=== PATIENT | female | born 1970 | race Caucasian/White ===

== ENCOUNTER 2017-12-03 19:54 | Observation (INO) ==
[2017-12-03 20:35] LABS: Basophils # 0.1 K/mcL (0.0-0.2); Basophils % 0.9 %; Eosinophils # 0.2 K/mcL (0.0-0.6); Eosinophils % 2.6 %; Hematocrit 37.7 % (35.3-44.9); Hemoglobin 12.2 g/dL (11.5-15.4); Immature Granulocytes % 0.8 % (0-4); Lymphocytes # 3.7 K/mcL (0.6-4.6); Lymphocytes % 39.9 %; Mean Corpuscular HGB Conc 32.4 g/dL (31.6-35.5); Mean Corpuscular Hemoglobin 26.1 pg (28.0-33.3); Mean Corpuscular Volume 80.7 fL (83.0-100.0); Mean Platelet Volume 9.3 fL (9.4-12.4); Monocytes # 0.4 K/mcL (0.0-1.3); Monocytes % 4.6 %; Neutrophils # 4.7 K/mcL (1.6-8.9); Platelet Count 447 K/mcL (140-400); Red Blood Count 4.67 M/mcL (3.82-4.97); Red Cell Distribution Width 12.6 % (11.5-14.5); Segmented Neutrophils % 51.2 %
[2017-12-03 20:49] LABS: BUN/Creatinine Ratio 19 (6-26); Blood Urea Nitrogen 20 mg/dL (6-20); Calcium 9.5 mg/dL (8.6-10.3); Carbon Dioxide 24 mEq/L (23-29); Chloride 103 mEq/L (98-107); Glucose 95 mg/dL (70-105); Osmolality,Calculated 286 (280-300); Potassium 3.6 mEq/L (3.5-5.1); Sodium 137 mEq/L (136-145); eGFR For African Americans > 60 (> 60); eGFR For Non-African Americans 54 (> 60)
--- NOTE | 2017-12-03 21:20 | Emergency Department Note ---
Disposition Clinical Impression: Chest pain Qualifiers: Chest pain type: unspecified Qualified Code(s): R07.9 - Chest pain, unspecified Disposition: Admitted As Inpatient Condition: Good Referrals: Antonette Parsons [Primary Care Provider] - Forms: ED Satisfaction Letter Time of Disposition: 21:20 Chest Pain HPI - General Chief Complaint: ED Shortness of Breath/Dyspnea Stated Complaint: Shortness of breath, chest tightness Time Seen by Provider: 12/03/17 21:08 Source: patient Mode of arrival: ambulatory Limitations: no limitations Vital Signs Reviewed: Yes Nursing Notes Reviewed: Yes - History of Present Illness HPI Narrative: 47-year-old female who comes in complaining of some intermittent chest pain. Patient was seen at outside facility and was told that she had a troponin that was positive but did not have any stress testing. She did go to [place] and had a troponin that was positive also. She's had intermittent chest pain since. She does have risk factors of hypertension high cholesterol family history. Pt complaint: chest pain Onset (ago): day(s) Duration: intermittent Onset: during rest Pain Location: substernal, left chest Severity: moderate Severity scale (1-10): 2 Quality: tightness, aching, heaviness Pain Radiation: none Improves with: nothing Worsens with: nothing Associated symptoms: Reports: dyspnea Treatments prior to arrival chest pain: none - Related Data Home Medications Medication Instructions Recorded Confirmed FLUoxetine HCl [Prozac] 40 mg PO DAILY 04/06/16 11/28/17 Omeprazole 20 mg PO BID 04/06/16 11/28/17 Cholecalciferol (Vitamin D3) 50,000 unit PO QWEEK 10/28/16 11/28/17 [Vitamin D3] Pantoprazole Sodium [Protonix] 40 mg PO DAILY 10/28/16 11/28/17 Atorvastatin [Lipitor] 10 mg PO HS 06/22/17 11/28/17 Fluticasone Propionate Nasal 1 spr NS BID PRN 06/22/17 11/28/17 [Flonase] Ranitidine HCl [Zantac] 150 mg PO HS 06/22/17 11/28/17 hydrOXYzine pamoate [HydrOXYzine 25 mg PO Q8H PRN 06/22/17 11/28/17 Pamoate] Allergies Allergy/AdvReac Type Severity Reaction Status Date / Time cephalexin Allergy Rash Verified 11/28/17 16:45 meperidine [From Demerol] Allergy Difficulty Verified 11/28/17 16:45 Breathing morphine Allergy Hives Verified 11/28/17 16:45 Penicillins [PCN] Allergy Rash Verified 11/28/17 16:45 All systems ED: reviewed and negative except as stated. Constitutional: Denies: fever, chills, weakness, weight change Eyes: Denies: eye pain, eye discharge, vision change ENT ED: Denies: ear pain, throat pain, dental pain, hearing loss, epistaxis, congestion, dysphagia Cardiovascular: Reports: chest pain. Denies: palpitations, dyspnea on exertion , edema, syncope Respiratory: Reports: dyspnea. Denies: cough, wheezes, hemoptysis, stridor Gastrointestinal: Denies: abdominal pain, nausea, vomiting, diarrhea, constipation, hematemesis, melena, hematochezia Genitourinary: Denies: dysuria, frequency, hematuria, discharge Musculoskeletal: Denies: back pain, neck pain, arthralgia, myalgia Integumentary: Denies: rash, abrasion, lesions Neurological: Denies: headache, weakness, numbness, paresthesias, confusion, abnormal gait, vertigo Psychiatric: Denies: anxiety, depression, suicidal thoughts, homicidal thoughts , auditory hallucinations, visual hallucinations Endocrine: Denies: fatigue Hematological/Lymphatic: Denies: easy bleeding, easy bruising Allergic/Immunologic: Denies: facial swelling, urticaria Chest Pain PMH - Past Medical History Medical history: Reports: GERD, hyperlipidemia, hypertension, other Surgical history: Reports: cholecystectomy, hysterectomy, orthopedic, other, sinus surgery, other Psychiatric history: Reports: anxiety, bipolar, depression, other - Social History Smoking Status: Former smoker Alcohol use: Reports: none Drug use: Reports: none Physical Exam - General Limitations: no limitations General appearance: alert, in no apparent distress - Head Head exam: atraumatic, normocephalic, normal inspection - Eye Eye exam: Present: normal appearance, PERRL, EOMI - ENT ENT exam: normal exam, normal oropharynx, mucous membranes moist - Neck Neck exam: Present: normal inspection, full ROM, trachea midline - Chest Chest inspection: Present: normal inspection, symmetric chest wall rise - Respiratory Respiratory exam: Present: normal lung sounds bilaterally - Cardiovascular Cardiovascular exam: Present: regular rate, normal rhythm, normal heart sounds - Abdominal Exam Abdominal exam: Present: soft, Non-Tender. Absent: tenderness, distention, guarding, rebound, rigidity - Extremities Exam Extremities exam: Present: normal inspection, full ROM. Absent: tenderness, pedal edema - Expanded Lower Extremity Exam Neurovascular/Tendon exam: Absent: motor deficit, sensory deficit, tendon deficit Gait: observed and normal - Back Exam Back exam: Present: normal inspection, full ROM. Absent: tenderness - Neurological Exam Neurological exam: Present: alert, oriented X3 - Psychiatric Psychiatric exam: Present: normal affect, normal mood Course - Reevaluation(s) Reevaluation #1: 47-year-old female who comes in complaining of chest pain and dyspnea she's had for a week or 2. She was actually seen at outside hospital had a positive troponin was discharged the next day with no further evaluation. She went to another hospital and will had a second troponin done that was positive. Troponin today is negative however in light of her to positive troponins and her symptoms were brought admit for rule out. Time: 23:08 - Consultations Consultation #1: Discussed with Dr. Burnett, admit. Time: 23:09 Vital Signs Temperature 97.4 F L 12/03/17 19:55 Pulse Rate 77 12/03/17 19:55 Respiratory Rate 16 12/03/17 19:55 Blood Pressure 145/88 12/03/17 19:55 O2 Sat by Pulse Oximetry 95 12/03/17 19:55 Temperature 97.4 F L 12/03/17 19:55 Pulse Rate 86 12/03/17 21:21 Respiratory Rate 18 12/03/17 21:21 Blood Pressure 140/71 12/03/17 21:21 O2 Sat by Pulse Oximetry 98 12/03/17 21:21 Oxygen Delivery Oxygen Delivery Room Air Chest Pain - Lab Data Lab results reviewed: Yes I reviewed the patient's lab results. Result diagrams: 12/03/17 20:25 12/03/17 20:25 Lab Results 12/03/17 12/03/17 12/03/17 Range/Units 20:25 20:25 20:25 WBC 9.2 (4.3-11.1) K/mcL RBC 4.67 (3.82-4.97) M/mcL Hgb 12.2 (11.5-15.4) g/dL Hct 37.7 (35.3-44.9) % MCV 80.7 L (83.0-100.0) fL MCH 26.1 L (28.0-33.3) pg MCHC 32.4 (31.6-35.5) g/dL RDW 12.6 (11.5-14.5) % Plt Count 447 H (140-400) K/mcL MPV 9.3 L (9.4-12.4) fL Immature Gran % 0.8 (0-4) % Seg Neutrophils % 51.2 % Lymphocytes % 39.9 % Monocytes % 4.6 % Eosinophils % 2.6 % Basophils % 0.9 % Neutrophils # 4.7 (1.6-8.9) K/mcL Lymphocytes # 3.7 (0.6-4.6) K/mcL Monocytes # 0.4 (0.0-1.3) K/mcL Eosinophils # 0.2 (0.0-0.6) K/mcL Basophils # 0.1 (0.0-0.2) K/mcL Sodium 137 (136-145) mEq/L Potassium 3.6 (3.5-5.1) mEq/L Chloride 103 (98-107) mEq/L Carbon Dioxide 24 (23-29) mEq/L BUN 20 (6-20) mg/dL Creatinine 1.08 (0.60-1.20) mg/dL Est GFR ( Amer) > 60 (> 60) Est GFR (Non-Af Amer) 54 L (> 60) BUN/Creatinine Ratio 19 (6-26) Glucose 95 (70-105) mg/dL Calculated Osmolality 286 (280-300) Lactic Acid 2.0 (0.5-2.2) mmol/L Calcium 9.5 (8.6-10.3) mg/dL Troponin I (< 0.04) ng/mL B-Natriuretic Peptide (Less than 100) pg/mL 12/03/17 12/03/17 12/03/17 Range/Units 20:25 20:25 22:09 WBC (4.3-11.1) K/mcL RBC (3.82-4.97) M/mcL Hgb (11.5-15.4) g/dL Hct (35.3-44.9) % MCV (83.0-100.0) fL MCH (28.0-33.3) pg MCHC (31.6-35.5) g/dL RDW (11.5-14.5) % Plt Count (140-400) K/mcL MPV (9.4-12.4) fL Immature Gran % (0-4) % Seg Neutrophils % % Lymphocytes % % Monocytes % % Eosinophils % % Basophils % % Neutrophils # (1.6-8.9) K/mcL Lymphocytes # (0.6-4.6) K/mcL Monocytes # (0.0-1.3) K/mcL Eosinophils # (0.0-0.6) K/mcL Basophils # (0.0-0.2) K/mcL Sodium (136-145) mEq/L Potassium (3.5-5.1) mEq/L Chloride (98-107) mEq/L Carbon Dioxide (23-29) mEq/L BUN (6-20) mg/dL Creatinine (0.60-1.20) mg/dL Est GFR ( Amer) (> 60) Est GFR (Non-Af Amer) (> 60) BUN/Creatinine Ratio (6-26) Glucose (70-105) mg/dL Calculated Osmolality (280-300) Lactic Acid 0.9 (0.5-2.2) mmol/L Calcium (8.6-10.3) mg/dL Troponin I < 0.03 (< 0.04) ng/mL B-Natriuretic Peptide 8 (Less than 100) pg/mL - EKG Data EKG attestation: Yes I reviewed and interpreted this EKG. EKG shows normal: sinus rhythm Rate: normal Rhythm: NSR When compared to previous EKG there are: no significant changes (11/28/2017) Interpretation: no acute changes Heart Score - Score History: Moderately Suspicious EKG: Non Specific repolarisation Disturbance Age: 45-65 Risk Factors: Equal/Greater than 3 risk factor or history of atherosclerotic disease Troponin: Less than normal limit HEART Score Total: 5
[2017-12-03] MEDS ORDERED: Aspirin 81 MG TAB.CHEW PO STA (23:17)
[2017-12-03] MEDS ORDERED: Acetaminophen 325 MG TABLET PO PRN (23:31)
[2017-12-04] MEDS ORDERED: *HR* LORazepam 2 MG/ML VIAL IVP PRN (00:51)
[2017-12-04] MEDS: *HR* LORazepam 1 MG TABLET PO PRN ×3 (01:07→21:26)
--- NOTE | 2017-12-04 01:37 | Internal Med History&Physical ---
Date of Encounter: 12/03/17 Time of Encounter: 22:45 Assessment and Plan (1) HTN (hypertension) Current visit: Yes Status: Acute Not on any home med, cont low salt diet. Qualifiers: Hypertension type: essential hypertension Qualified Code(s): I10 - Essential (primary) hypertension (2) DVT prophylaxis Current visit: Yes Status: Acute Heparin SC (3) Chest pain, rule out acute myocardial infarction Current visit: No Status: Acute Pt has chest tightness. Hx of HTN, HLD, Obesity, Former smoker. Need to r/o ACS - Continuous cardiac monitoring - Track 3 sets of troponin. - Echo as pt c/o exertional SOB. - Stress test in AM (4) Morbid obesity with BMI of 40.0-44.9, adult Current visit: No Status: Chronic Need life style modification. (5) Dyslipidemia Current visit: No Status: Chronic C/o home med liptor. Internal Medicine - H&P: HPI Chief complaint: Chest tightness Admitted From: Home Plans for Post Hospital Care: Home History of present illness: Ms. Moses is a 47 year old female with Hx of chronic back pain, HTN, and HLD, present to ER for intermittent chest tightness for about one week. Symptoms is on and off, last 5-10 seconds. Pt has mild nausea but no vomiting. no diaphoresis. Pt also c/o increased exertional SOB in last week. Pt has no CAD hx , she did stress test about 5 yrs ago, which was negative. Past Med Surg Social Fam HX - Past Medical History Medical history: GERD, hyperlipidemia, hypertension, other Psychiatric history: anxiety, bipolar, depression - Past Surgical History Surgical History: cholecystectomy, hysterectomy, orthopedic, other, sinus surgery, other - Social History Smoking Status: Former smoker Smokeless Tobacco Status: No Alcohol use: none Drug use: none - Family History Father Living Status: Still Living Hx Family Cardiac Disorders: Yes (CT X 4 CHF, PACER ,) Hx Family Respiratory Disorders: No Hx Family Cancer: No Hx Family GI Disorders: No Hx Family Endocrine Disorder: Yes (DM) Hx Family Neuromuscular Disorders: No Hx Family Neurologic Disorders: No Hx Family HEENT Disorders: No Hx Family Autoimmune Disorders: No Internal Medicine - H&P: Meds FLUoxetine HCl [Prozac] 40 mg PO DAILY 04/06/16 [History] Omeprazole 20 mg PO BID 04/06/16 [History] Cholecalciferol (Vitamin D3) [Vitamin D3] 50,000 unit PO QWEEK 10/28/16 [History ] Pantoprazole Sodium [Protonix] 40 mg PO DAILY 10/28/16 [History] Atorvastatin [Lipitor] 10 mg PO HS 06/22/17 [History] Fluticasone Propionate Nasal [Flonase] 1 spr NS BID PRN 06/22/17 [History] Ranitidine HCl [Zantac] 150 mg PO HS 06/22/17 [History] hydrOXYzine pamoate [HydrOXYzine Pamoate] 25 mg PO Q8H PRN 06/22/17 [History] 3 Allergy/AdvReac Type Severity Reaction Status Date / Time cephalexin Allergy Rash Verified 11/28/17 16:45 meperidine [From Demerol] Allergy Difficulty Verified 11/28/17 16:45 Breathing morphine Allergy Hives Verified 11/28/17 16:45 Penicillins [PCN] Allergy Rash Verified 11/28/17 16:45 All Systems PM: A 10-system review of systems was performed and is negative for pertinent findings except as documented above in the HPI. - Constitutional Vitals: Temp Pulse Resp BP Pulse Ox 97.5 F L 77 16 145/81 94 12/04/17 00:42 12/04/17 00:42 12/04/17 00:42 12/04/17 00:42 12/04/17 00:42 General appearance: Present: A&O X 3, morbidly obese, no acute distress, answers questions appropriately - Head Head exam: Present: atraumatic, normocephalic - Eye Eye exam: Present: PERRL, conjuntiva pink, sclera anicteric Pupils: Present: PERRL - Neck Neck exam general surgery: Present: supple, trachea midline. Absent: lymphadenopathy - Respiratory Respiratory exam: Present: CTAB. Absent: accessory muscle use, rales, rhonchi, wheezes - Cardiovascular Cardiovascular exam: Present: RRR, +S1, +S2. Absent: diastolic murmur, gallop, rubs, systolic murmur - GI/Abdominal GI/Abdominal exam: Present: normal bowel sounds, soft, no peritoneal signs. Absent: distended, tenderness - Extremities Exam Extremities exam: Present: warm, radial pulses palpable and symmetrical. Absent : calf tenderness, cyanotic, pedal edema - Neurological Exam Neurological exam: Present: CN II-XII intact, oriented X3, no focal deficits. Absent: pronater drift, facial droop, speech deficit - Skin Skin exam: Present: dry, intact Internal Med - H&P Results - Labs CBC & Chem 7: 12/03/17 20:25 12/03/17 20:25 Labs: Cardiac Enzymes 12/04/17 Range/Units 00:04 Troponin I < 0.03 (< 0.04) ng/mL - EKG Data -: EKG Interpreted by Myself EKG shows normal: sinus rhythm Rate: normal
[2017-12-04] MEDS ORDERED: hydrOXYzine pamoate 25 MG CAPSULE PO PRN (01:39)
[2017-12-04] MEDS ORDERED: Fluticasone Propionate Nasal 50 MCG/SPRAY BOTTLE NS PRN (01:39)
[2017-12-04] MEDS: *HR* Heparin 5,000 UNIT/ML VIAL SQ SCH ×2 (05:51→20:12)
[2017-12-04 06:35] LABS: BUN/Creatinine Ratio 20 (6-26); Blood Urea Nitrogen 17 mg/dL (6-20); Calcium 9.4 mg/dL (8.6-10.3); Carbon Dioxide 25 mEq/L (23-29); Chloride 104 mEq/L (98-107); Glucose 129 mg/dL (70-105); Magnesium 1.8 mg/dL (1.6-2.6); Osmolality,Calculated 289 (280-300); Potassium 3.6 mEq/L (3.5-5.1); Sodium 138 mEq/L (136-145); eGFR For African Americans > 60 (> 60); eGFR For Non-African Americans > 60 (> 60)
[2017-12-04 06:40] LABS: Basophils # 0.1 K/mcL (0.0-0.2); Basophils % 1.1 %; Eosinophils # 0.3 K/mcL (0.0-0.6); Eosinophils % 3.2 %; Hematocrit 35.8 % (35.3-44.9); Hemoglobin 11.6 g/dL (11.5-15.4); Immature Granulocytes % 0.8 % (0-4); Mean Corpuscular HGB Conc 32.4 g/dL (31.6-35.5); Mean Corpuscular Volume 80.1 fL (83.0-100.0); Mean Platelet Volume 9.6 fL (9.4-12.4); Monocytes # 0.5 K/mcL (0.0-1.3); Monocytes % 5.9 %; Neutrophils # 4.4 K/mcL (1.6-8.9); Platelet Count 439 K/mcL (140-400); Red Blood Count 4.47 M/mcL (3.82-4.97); Red Cell Distribution Width 12.6 % (11.5-14.5)
[2017-12-04] MEDS: *HR* HYDROmorphone (PF) 1 MG/ML SYRINGE IVP PRN ×3 (06:50→20:15)
[2017-12-04 06:52] LABS: Immature Platelets 1.9 % (1.1-6.1)
[2017-12-04] MEDS ORDERED: NON-FORMULARY MEDICATION 1 EACH EACH (Pantoprazole Sodium [Protonix] 40 MG) PO SCH (09:00)
[2017-12-04] MEDS: Cholecalciferol (D-3) 1,000 UNIT TABLET PO SCH (09:57)
[2017-12-04] MEDS: FLUoxetine 20 MG CAPSULE PO SCH (09:57)
--- NOTE | 2017-12-04 12:15 | Internal Med Progress Note ---
Date of Encounter: 12/04/17 Time of Encounter: 10:40 - Assessment and plan (1) Chest pain Current Visit: Yes Status: Acute Assessment and plan: Patient reports one to 2 week history of substernal chest pain. She describes it as a pressure and states that it feels like she has something stuck in her esophagus, "like I swallowed something to big and it will not go down." She reports that the pain is intermittent, lasts 5-10 seconds. The pain is reproducible with palpation to upper chest. She is tender to palpation in the epigastric area. She reports being admitted one week ago to [facility]. She had no stress test or echo done at that time. She reports that her last EGD was one year ago. Troponins are negative. Chest x-ray is negative. Echocardiogram is completed, results are not available at this time. Stress test will start tomorrow on Tuesday, most likely patient will be a 2 day stress test. Patient has risk factors of hypertension, former smoker, morbid obesity, dyslipidemia. Continue to telemetry Stress test tomorrow Echo results pending Monitor labs and vital signs Qualifiers: Chest pain type: unspecified Qualified Code(s): R07.9 - Chest pain, unspecified (2) Morbid obesity with BMI of 40.0-44.9, adult Current Visit: Yes Status: Chronic Assessment and plan: Chronic. Lifestyle modifications. (3) Dyslipidemia Current Visit: Yes Status: Chronic Assessment and plan: Chronic. Continue Lipitor. (4) HTN (hypertension) Current Visit: Yes Status: Acute Assessment and plan: Chronic. Continue home medications. Monitor vital signs per admission orders. Qualifiers: Hypertension type: essential hypertension Qualified Code(s): I10 - Essential (primary) hypertension (5) GERD (gastroesophageal reflux disease) Current Visit: Yes Status: Acute Assessment and plan: Patient's symptoms are suspicious for heartburn/GERD symptoms. She does report relation to food. Patient reports nausea without vomiting with the pain. At home patient takes Protonix and omeprazole. Epigastric area tender to palpation. She reports her last EGD was 1 year ago. Continue home medications. Qualifiers: Esophagitis presence: esophagitis presence not specified Qualified Code(s) : K21.9 - Gastro-esophageal reflux disease without esophagitis (6) DVT prophylaxis Current Visit: Yes Status: Acute Assessment and plan: Subcutaneous heparin daily. - Subjective Interval history: Pt was seen and assessed at [facility] at 1040. She is alert and awake and has multiple questions. Pt with 1- 1 1/2 week history of intermittent chest pain/ pressure, "feels like something stuck in my esophagus." She was admitted to [facility] 1 week ago for same. Did not have stress or echo done. She denies pain/pressure, n/v, diaphoresis, abd pain, headache, SOB. - Constitutional Vitals: Temp Pulse Resp BP Pulse Ox 98.2 F 86 16 134/80 96 12/04/17 11:06 12/04/17 11:06 12/04/17 11:06 12/04/17 11:06 12/04/17 11:06 General appearance: Present: cooperative, A&O X 3, morbidly obese, pleasant, no acute distress, answers questions appropriately - Head Head exam: Present: atraumatic, normal inspection, normocephalic - Eye Eye exam: Present: normal appearance, conjuntiva pink, sclera anicteric - Neck Neck exam general surgery: Present: supple, trachea midline. Absent: lymphadenopathy, tenderness - Respiratory Respiratory exam: Present: CTAB. Absent: accessory muscle use, chest wall tenderness, rales, respiratory distress, rhonchi, wheezes - Cardiovascular Cardiovascular exam: Present: RRR, +S1, +S2. Absent: diastolic murmur, gallop, rubs, systolic murmur - GI/Abdominal GI/Abdominal exam: Present: normal bowel sounds, soft, tenderness. Absent: distended, hepatomegaly - Extremities Exam Extremities exam: Present: normal capillary refill, warm, radial pulses palpable and symmetrical. Absent: calf tenderness, cyanotic, pedal edema, tenderness - Neurological Exam Neurological exam: Present: alert, oriented X3, no focal deficits. Absent: facial droop, speech deficit - Skin Skin exam: Present: dry, intact, normal color, warm. Absent: rash Internal Medicine: Result - Labs CBC & Chem 7: 12/04/17 05:20 12/04/17 05:20 Labs: Short CBC 12/04/17 Range/Units 05:20 WBC 8.3 (4.3-11.1) K/mcL Hgb 11.6 (11.5-15.4) g/dL Hct 35.8 (35.3-44.9) % Plt Count 439 H (140-400) K/mcL Neutrophils # 4.4 (1.6-8.9) K/mcL BMP 12/04/17 05:20 Sodium 138 Potassium 3.6 Chloride 104 Carbon Dioxide 25 BUN 17 Creatinine 0.87 Glucose 129 H Calcium 9.4 Cardiac Enzymes 12/04/17 12/04/17 Range/Units 00:04 05:20 Troponin I < 0.03 < 0.03 (< 0.04) ng/mL Consult Discharge Plan - Plan Referrals: Antonette Parsons [Primary Care Provider] -
[2017-12-04] MEDS: tiZANidine 4 MG TABLET PO PRN (16:06)
[2017-12-04] MEDS: Famotidine 20 MG TABLET PO SCH (20:12)
[2017-12-05] MEDS: *HR* Heparin 5,000 UNIT/ML VIAL SQ SCH ×2 (05:49→19:35)
[2017-12-05] MEDS: *HR* HYDROmorphone (PF) 1 MG/ML SYRINGE IVP PRN ×3 (05:49→20:37)
[2017-12-05] MEDS ORDERED: Regadenoson 0.4 MG/5 ML SYRINGE IVP ONE (06:30)
--- NOTE | 2017-12-05 10:26 | Electrocardiograph Report ---
[address] [place] [address] Test Date: 2017-12-03 Pat Name: Courtney Moses Department: 104 Room: 3B Gender: F [employer]: : 1970 Requested By: Storm Shane Order Number: [id number] Reading MD: Domo Nogueira MD Measurements Intervals [place] Rate: 94 P: 32 MS: 161 QRS: 15 QRSD: 94 T: 12 QT: 362 QTc: 413 Interpretive Statements SINUS RHYTHM WITH MARKED SINUS ARRHYTHMIA Poor R wave progression Electronically Signed On 12-05-2017 10:24:35 EST by Domo Nogueira MD
[2017-12-05] MEDS: hydroCHLOROthiazide 25 MG TABLET PO SCH (11:20)
[2017-12-05] MEDS: Aspirin 81 MG TAB.CHEW PO SCH (11:20)
[2017-12-05] MEDS: Cholecalciferol (D-3) 1,000 UNIT TABLET PO SCH (11:20)
[2017-12-05] MEDS: Multivit/Ca/Min/Fe/FA 1 TAB TABLET PO SCH (11:20)
[2017-12-05] MEDS: FLUoxetine 20 MG CAPSULE PO SCH (11:20)
[2017-12-05] MEDS: tiZANidine 4 MG TABLET PO PRN ×2 (11:27→20:37)
[2017-12-05] MEDS: *HR* LORazepam 1 MG TABLET PO PRN (15:50)
--- NOTE | 2017-12-05 16:48 | Internal Med Progress Note ---
Date of Encounter: 12/05/17 Time of Encounter: 10:40 - Assessment and plan (1) Chest pain Current Visit: Yes Status: Acute Assessment and plan: Patient reports 1 to 2 week history of substernal chest pain. She describes it as a pressure and states that it feels like she has something stuck in her esophagus, "like I swallowed something to big and it will not go down." She reports that the pain is intermittent, lasts 5-10 seconds. The pain is reproducible with palpation to upper chest. She is tender to palpation in the epigastric area. She reports being admitted one week ago to [facility]. She had no stress test or echo done at that time. She reports that her last EGD was one year ago. Troponins are negative. Chest x-ray is negative. Echocardiogram with preserved EF, study technically suboptimal. No significant valvular dysfunction. Patient is a 2 day stress test. Patient has risk factors of hypertension, former smoker, morbid obesity, dyslipidemia. Continue telemetry Treat chest pain with aspirin or morphine Monitor labs and patient condition Qualifiers: Chest pain type: unspecified Qualified Code(s): R07.9 - Chest pain, unspecified (2) Morbid obesity with BMI of 40.0-44.9, adult Current Visit: Yes Status: Chronic Assessment and plan: Chronic. Lifestyle modifications (3) Dyslipidemia Current Visit: Yes Status: Chronic Assessment and plan: Chronic. Continue Lipitor. Patient should have lipid panel repeated at primary care after discharge. (4) HTN (hypertension) Current Visit: Yes Status: Acute Assessment and plan: Chronic. Continue home medications. Monitor vital signs per admission orders. Bowel well Controlled in the hospital setting. Qualifiers: Hypertension type: essential hypertension Qualified Code(s): I10 - Essential (primary) hypertension (5) GERD (gastroesophageal reflux disease) Current Visit: Yes Status: Acute Assessment and plan: Patient's symptoms are suspicious for heartburn/GERD symptoms. She does report relation to food. Patient reports nausea without vomiting with the pain. At home patient takes Protonix and omeprazole. Epigastric area tender to palpation. She reports her last EGD was 1 year ago. Continue home medications, if symptoms continue, suggest to add H2 scooter. Qualifiers: Esophagitis presence: esophagitis presence not specified Qualified Code(s) : K21.9 - Gastro-esophageal reflux disease without esophagitis (6) DVT prophylaxis Current Visit: Yes Status: Acute Assessment and plan: Subcutaneous heparin daily. Pt has been ambulatory (7) Chronic back pain Current Visit: Yes Status: Acute Assessment and plan: Patient reports chronic low back pain. She states that she sees pain management. She reports having to see new house painter helper after Dr. Paredes told her that he was not helping her anymore. Patient is to see pain management in [facility] for pain pump insertion. Patient had back pain today and was tearful and writhing in pain on the bed. She reports that she received IV Toradol. She was up ambulatory around the department without any difficulty and stated that she felt better. Continue home medications and follow with pain management as scheduled. Qualifiers: Back pain location: low back pain Back pain laterality: left Sciatica presence: unspecified whether sciatica present Qualified Code(s): M54.5 - Low back pain; G89.29 - Other chronic pain; G89.29 - Other chronic pain - Subjective Interval history: Pt was seen and assessed at [facility] at 1040. She is alert and awake and has multiple questions. Patient crying, writhing in bed during exam. She reports return of her chronic low back pain with radiation down her left leg. She states that she has not had any pain medicine today because she does not do well with oral pain medications and that she is going to have a pain pump placed soon because only IV pain medications work. I encouraged patient to use heat and/or ambulate and try Toradol IV. About 10 minutes later patient was ambulating through department without any difficulty and stated that she felt better. She denies pain/pressure, n/v, diaphoresis, abd pain, headache, SOB. Patient is a 2 day stress test. - Constitutional Vitals: Temp Pulse Resp BP Pulse Ox 98.3 F 78 18 144/90 99 12/05/17 16:25 12/05/17 16:25 12/05/17 16:25 12/05/17 16:25 12/05/17 16:25 General appearance: Present: cooperative, A&O X 3, morbidly obese, pleasant, no acute distress, answers questions appropriately - Head Head exam: Present: atraumatic, normal inspection, normocephalic - Eye Eye exam: Present: conjuntiva pink, sclera anicteric - Neck Neck exam general surgery: Present: supple, trachea midline. Absent: lymphadenopathy, tenderness - Respiratory Respiratory exam: Present: CTAB. Absent: accessory muscle use, rales, rhonchi, wheezes - Cardiovascular Cardiovascular exam: Present: RRR, +S1, +S2. Absent: diastolic murmur, gallop, rubs, systolic murmur - GI/Abdominal GI/Abdominal exam: Present: normal bowel sounds, soft, no peritoneal signs. Absent: distended, hepatomegaly, tenderness - Extremities Exam Extremities exam: Present: warm, radial pulses palpable and symmetrical. Absent : calf tenderness, cyanotic, normal capillary refill, pedal edema - Neurological Exam Neurological exam: Present: alert, no focal deficits. Absent: facial droop, speech deficit - Skin Skin exam: Present: dry, intact, normal color, warm. Absent: rash Internal Medicine: Result - Labs CBC & Chem 7: 12/04/17 05:20 12/04/17 05:20 Consult Discharge Plan - Plan Referrals: Antonette Parsons [Primary Care Provider] -
[2017-12-05] MEDS: Famotidine 20 MG TABLET PO SCH (20:36)
[2017-12-06] MEDS: *HR* Heparin 5,000 UNIT/ML VIAL SQ SCH ×2 (05:54→18:20)
[2017-12-06] MEDS: *HR* HYDROmorphone (PF) 1 MG/ML SYRINGE IVP PRN ×3 (07:47→22:18)
[2017-12-06] MEDS: Aspirin 81 MG TAB.CHEW PO SCH (07:50)
[2017-12-06] MEDS: Multivit/Ca/Min/Fe/FA 1 TAB TABLET PO SCH (07:50)
[2017-12-06] MEDS: Cholecalciferol (D-3) 1,000 UNIT TABLET PO SCH (07:50)
[2017-12-06] MEDS: hydroCHLOROthiazide 25 MG TABLET PO SCH (07:50)
[2017-12-06] MEDS: FLUoxetine 20 MG CAPSULE PO SCH (07:50)
[2017-12-06] MEDS: tiZANidine 4 MG TABLET PO PRN ×2 (08:25→22:18)
[2017-12-06] MEDS ORDERED: SUMAtriptan 6 MG/0.5 ML SQ ONE (10:44)
--- NOTE | 2017-12-06 16:42 | Internal Med Progress Note ---
Date of Encounter: 12/06/17 Time of Encounter: 16:36 - Assessment and plan (1) Chest pain Current Visit: Yes Status: Acute Assessment and plan: presented with intermittent chest pain for the last week. Serial troponins negative. Chest x-ray is negative. TTE with preserved EF, study technically suboptimal. No significant valvular dysfunction. Stress test negative for ischemia or infarct. Suspect possible GI component as patient reports worsening GERD and sensation of gagging along with chest pain. No further cardiac testing at this time. Plan as noted below. Qualifiers: Chest pain type: unspecified Qualified Code(s): R07.9 - Chest pain, unspecified (2) GERD (gastroesophageal reflux disease) Current Visit: Yes Status: Acute Assessment and plan: reports hx severe heartburn/GERD and gagging sensation. Last EGD was 1 year ago. IV PPI, nothing by mouth at midnight, GI consulted Qualifiers: Esophagitis presence: esophagitis presence not specified Qualified Code(s) : K21.9 - Gastro-esophageal reflux disease without esophagitis (3) HTN (hypertension) Current Visit: Yes Status: Acute Assessment and plan: per hx. BP controlled. Cont home BP medication. Monitor BP and titrate PRN. Qualifiers: Hypertension type: essential hypertension Qualified Code(s): I10 - Essential (primary) hypertension (4) DVT prophylaxis Current Visit: Yes Status: Acute Assessment and plan: heparin - Subjective Interval history: Seen and examined at bedside, patient is new to me. Information obtained from chart review and patient report. Patient says she feels better, still with intermittent chest and SOB. She also reports sensation of gagging with chest pain. - Constitutional Vitals: Temp Pulse Resp BP Pulse Ox 98.7 F 103 18 113/76 98 12/06/17 15:42 12/06/17 15:42 12/06/17 15:42 12/06/17 10:55 12/06/17 15:42 General appearance: Present: cooperative, A&O X 3, morbidly obese, pleasant, no acute distress, answers questions appropriately - Head Head exam: Present: atraumatic, normocephalic - Eye Eye exam: Present: PERRL, conjuntiva pink, sclera anicteric Pupils: Present: PERRL - Neck Neck exam general surgery: Present: supple, trachea midline. Absent: lymphadenopathy - Respiratory Respiratory exam: Present: CTAB. Absent: accessory muscle use, rales, rhonchi, wheezes - Cardiovascular Cardiovascular exam: Present: RRR, +S1, +S2. Absent: diastolic murmur, gallop, rubs, systolic murmur - GI/Abdominal GI/Abdominal exam: Present: normal bowel sounds, soft, no peritoneal signs. Absent: distended, tenderness - Extremities Exam Extremities exam: Present: warm, radial pulses palpable and symmetrical. Absent : calf tenderness, cyanotic, pedal edema - Neurological Exam Neurological exam: Present: CN II-XII intact, oriented X3, no focal deficits. Absent: pronater drift, facial droop, speech deficit - Skin Skin exam: Present: dry, intact Internal Medicine: Result - Labs CBC & Chem 7: 12/04/17 05:20 12/04/17 05:20 Consult Discharge Plan - Plan Referrals: Antonette Parsons [Primary Care Provider] - 12/14/17 9:30 am
[2017-12-06] MEDS: Pantoprazole 40 MG VIAL IVP SCH (18:20)
[2017-12-06] MEDS: Famotidine 20 MG TABLET PO SCH (20:50)
[2017-12-07] MEDS: *HR* Heparin 5,000 UNIT/ML VIAL SQ SCH ×2 (05:20→17:07)
[2017-12-07] MEDS: *HR* HYDROmorphone (PF) 1 MG/ML SYRINGE IVP PRN ×3 (05:20→20:12)
[2017-12-07 05:54] LABS: Hemoglobin A1C 5.6 %
[2017-12-07 06:03] LABS: Chol/HDL Ratio 4.1 (0-4.9)
[2017-12-07] MEDS ORDERED: SUMAtriptan 6 MG/0.5 ML SQ ONE (08:53)
[2017-12-07] MEDS: Pantoprazole 40 MG VIAL IVP SCH (10:06)
--- NOTE | 2017-12-07 11:57 | Gastroenterology Consult Note ---
<Mateo Velasquez - Last Filed: 12/07/17 11:55> Date of Encounter: 12/07/17 Time of Encounter: 11:05 - Assessment and plan (1) Atypical chest pain Status: Acute Assessment and plan: Likely secondary to GERD. Cardiac workup negative. (2) GERD (gastroesophageal reflux disease) Status: Acute Assessment and plan: Continue PPI and plan for EGD today to r/o esophagitis, gastritis, duodenitis, PUD, MW tear, or AVM. If EGD negative, plan for esophageal manometry as outpatient. Keep patient NPO for now. Qualifiers: Esophagitis presence: esophagitis presence not specified Qualified Code(s) : K21.9 - Gastro-esophageal reflux disease without esophagitis - Time Spent With Patient Total time spent is greater than 50% in coordination of care (as documented) at patient's floor/unit and/or counseling patient: GI History of Present Illness - Data of Consult Patient: new to practice Consult date: 12/07/17 Requesting Physician: Brittany Mcnair CNP - Consult Narrative Reason for consult: Worsening GERD History of present illness: Ms. Moses is a 47 year old female with PMHx of GERD, HLD, HTN, chronic back pain who presented to the ED with intermittent chest tightness for the past 1-2 weeks. She reported chest pressure and states it feels like something is stuck in her esophagus. She complained of mild nausea but denies vomiting. Serial troponins negative. Chest x-ray is negative. TTE with preserved EF, study technically suboptimal. No significant valvular dysfunction. Stress test negative for ischemia or infarct. We were consulted to evaluate her GERD. She reports having an EGD 1 year ago. Procedures: EGD NSAIDs: ASA, ibuprofen Anticoagulation: None Past Med Surg Social Fam HX - Past Medical History Medical history: GERD, hyperlipidemia, hypertension, other Psychiatric history: anxiety, bipolar, depression - Past Surgical History Surgical History: cholecystectomy, hysterectomy, orthopedic, other, sinus surgery, other - Social History Smoking Status: Former smoker Smokeless Tobacco Status: No Alcohol use: none Drug use: none - Family History Father Living Status: Still Living Hx Family Cardiac Disorders: Yes (MS X 4 CHF, PACER ,) Hx Family Respiratory Disorders: No Hx Family Cancer: No Hx Family GI Disorders: No Hx Family Endocrine Disorder: Yes (DM) Hx Family Neuromuscular Disorders: No Hx Family Neurologic Disorders: No Hx Family HEENT Disorders: No Hx Family Autoimmune Disorders: No - Gastrointestinal Gastrointestinal: Present: as per HPI - Constitutional Constitutional: as per HPI - EENT Eyes: as per HPI Ears: Present: as per HPI Nose, mouth and throat: Present: as per HPI - Cardiovascular Cardiovascular ROS: Present: as per HPI - Respiratory Respiratory IM: Present: as per HPI - Genitourinary Genitourinary: Absent: change in color, Urinary frequency - Neurological ROS Neurological GI: Absent: as per HPI - Hematologic/Lymphatic Hematologic/Lymphatic pediatric: Absent: as per HPI - Musculoskeletal Musculoskeletal ROS GI: Absent: as per HPI - Integumentary Integumentary GI: Absent: as per HPI - Psychiatric ROS Psychiatric GI: Absent: as per HPI - Endocrine Endocrine IM: Absent: as per HPI - Constitutional Vitals: Temp Pulse Resp BP Pulse Ox 98.1 F 92 18 123/81 99 12/07/17 11:44 12/07/17 11:44 12/07/17 11:44 12/07/17 11:44 12/07/17 11:44 General appearance: Present: cooperative, A&O X 3, no acute distress, answers questions appropriately - Head Head exam: Present: atraumatic, normocephalic - Eye Eye exam: Present: normal appearance, sclera anicteric - ENT ENT exam: Present: mucous membranes dry - Neck Neck exam general surgery: Present: normal inspection, trachea midline - Respiratory Respiratory exam: Present: CTAB. Absent: rales - Cardiovascular Cardiovascular exam: Present: RRR, +S1, +S2 - GI/Abdominal GI/Abdominal exam: Present: soft, tenderness (epigastric), no peritoneal signs. Absent: distended, firm, guarding - Rectal Rectal exam: Present: deferred - Extremities Exam Extremities exam: Present: warm - Neurological Exam Neurological exam: Present: no focal deficits - Psychiatric Psychiatric exam: Present: normal affect, normal mood - Skin Skin exam: Present: dry, intact, normal color, warm Results - Labs CBC & Chem 7: 12/04/17 05:20 12/04/17 05:20 Labs: Last Result Calcium 9.4 mg/dL (8.6-10.3) 12/04/17 05:20 Troponin I < 0.03 ng/mL (< 0.04) 12/04/17 05:20 Triglycerides 192 mg/dL (< 150) H 12/07/17 04:51 Entire Visit Hgb 11.6 g/dL (11.5-15.4) 12/04/17 05:20 Hct 35.8 % (35.3-44.9) 12/04/17 05:20 - ABG ABG results: PT/INR, D-dimer D-Dimer 378 ng/mLFEU (0-500) 12/06/17 16:54 Consult Discharge Plan - Plan Instructions: Hydrochlorothiazide (By mouth), Atorvastatin (By mouth), Chest Pain (DC), Hypotension (DC) Referrals: Antonette Parsons [Primary Care Provider] - 12/14/17 9:30 am Prescriptions: Atorvastatin [Lipitor] 20 mg PO HS #60 tablet Atorvastatin [Lipitor] 5 mg PO HS #30 tablet hydroCHLOROthiazide [Hydrochlorothiazide] 25 mg PO DAILY #30 tablet <Natalia Canas - Last Filed: 12/09/17 16:27> Date of Encounter: 12/07/17 Time of Encounter: 13:00 - Time Spent With Patient Total time spent is greater than 50% in coordination of care (as documented) at patient's floor/unit and/or counseling patient: GI History of Present Illness - Data of Consult Requesting Physician: Brittany Mcnair CNP - Consult Narrative History of present illness: Ms. Moses is a 47 year old female - Constitutional Vitals: Temp Pulse Resp BP Pulse Ox 97.8 F 102 18 119/77 92 12/08/17 06:57 12/08/17 06:57 12/08/17 06:57 12/08/17 06:57 12/08/17 06:57 Results - Labs CBC & Chem 7: 12/04/17 05:20 12/04/17 05:20 Labs: Last Result Calcium 9.4 mg/dL (8.6-10.3) 12/04/17 05:20 Troponin I < 0.03 ng/mL (< 0.04) 12/04/17 05:20 Triglycerides 192 mg/dL (< 150) H 12/07/17 04:51 Entire Visit Hgb 11.6 g/dL (11.5-15.4) 12/04/17 05:20 Hct 35.8 % (35.3-44.9) 12/04/17 05:20 - ABG ABG results: PT/INR, D-dimer D-Dimer 378 ng/mLFEU (0-500) 12/06/17 16:54 - Attending Attestation I examined this patient and my medical decision-making was reviewed with the Resident Physician. I agree with the documented findings, disposition and treatment plan as described except to the extent set forth below.
--- NOTE | 2017-12-07 11:57 | Anesthesia Evaluation PreOp ---
Date of Encounter: 12/07/17 Time of Encounter: 12:00 - Past History Planned Operation: EGD Cardiac History: HTN, Hyperlipidemia Pulmonary History: Former smoker, AIDEN Dx (non compliant CPAP) PSYCHIATRIC SPECIALIST History: Denies Any Significant HX Other Medical History: GERD, Other (Morbid Obesity) : No Alcohol Use: none Drug use: none Medications and Allergies FLUoxetine HCl [Prozac] 40 mg PO DAILY 04/06/16 [History] Omeprazole 20 mg PO BID 04/06/16 [History] Cholecalciferol (Vitamin D3) [Vitamin D3] 50,000 unit PO QWEEK 10/28/16 [History ] Pantoprazole Sodium [Protonix] 40 mg PO DAILY 10/28/16 [History] Atorvastatin [Lipitor] 10 mg PO HS 06/22/17 [History] hydrOXYzine pamoate [HydrOXYzine Pamoate] 50 mg PO Q8H PRN 06/22/17 [History] Aspirin [Aspirin] 81 mg PO DAILY 12/04/17 [History] Ibuprofen [Ibuprofen] 800 mg PO TID 12/04/17 [History] Iron Fum,Ps/FA/Vit B with C #9 [Integra Plus Capsule] 1 cap PO DAILY 12/04/17 [ History] Lisinopril [Zestril] 10 mg PO DAILY 12/04/17 [History] Quetiapine Fumarate [Seroquel] 200 mg PO HS 12/04/17 [History] Tizanidine HCl [Tizanidine HCl] 8 mg PO BID PRN 12/04/17 [History] hydroCHLOROthiazide [Hydrochlorothiazide] 50 mg PO DAILY 12/04/17 [History] 3 Allergy/AdvReac Type Severity Reaction Status Date / Time cephalexin Allergy Rash Verified 11/28/17 16:45 meperidine [From Demerol] Allergy Difficulty Verified 11/28/17 16:45 Breathing morphine Allergy Hives Verified 11/28/17 16:45 Penicillins [PCN] Allergy Rash Verified 11/28/17 16:45 - Meds/Allergy Pre-op Review Medications Reviewed: Yes Allergies Reviewed: Yes Beta Blockers on Current Med List: No Anesthesia Results - Labs 12/04/17 05:20 12/04/17 05:20 - Imaging EKG: report reviewed (SR sinus arrhythmia) Additional studies: LVEF 60%, stress test negative Anesthesia Exam O2 Sat Weight 104.191 kg O2 Sat by Pulse Oximetry 99 O2 Sat by Pulse Oximetry 94 O2 Sat by Pulse Oximetry 95 O2 Sat by Pulse Oximetry 96 O2 Sat by Pulse Oximetry 94 O2 Sat by Pulse Oximetry 97 O2 Sat by Pulse Oximetry 98 Vital Signs Temp Pulse Resp BP Pulse Ox 97.4 F L 77 16 145/88 95 12/03/17 19:55 12/03/17 19:55 12/03/17 19:55 12/03/17 19:55 12/03/17 19:55 Height: 5'4 Weight: 230 lbs NPO (# of Hours): MN Pain Scale: 0 - HEENT Pupil (Motor): Pupils equal, EOMI Mallampati: II Teeth: Normal Oral Opening: Greater than 3 - PSYCHIATRIC SPECIALIST LOC: Oriented PSYCHIATRIC SPECIALIST Motor: Normal RUE, Normal LUE, Normal RLE, Normal LLE, Normal Face PSYCHIATRIC SPECIALIST Sensory: Normal: RUE, LUE, RLE, LLE, Face - Cardiac Rhythm: Regular Murmur: None JVD: No Carotid Bruit: No - Pulmonary Breath Sounds: bilateral Clear Respiratory Effort: Symmetrical Anesthesia Assess/Plan ASA Score: 3 (HTN AIDEN MO) Modified Middlebrook Scale for Level of Consciousness: Cooperative, oriented, and tranquil Anesthetic Plan: MAC Monitoring Plan: Standard Monitors Recovery Plan: Other (Discussed MAC, agrees to proceed)
[2017-12-07] MEDS ORDERED: 0.9 % Sodium Chloride 1,000 ML IVC SCH (12:00)
[2017-12-07] MEDS ORDERED: *HR* Propofol 200 MG/20 ML VIAL IVP ONE (12:04)
[2017-12-07] MEDS: Cholecalciferol (D-3) 1,000 UNIT TABLET PO SCH (13:47)
[2017-12-07] MEDS: Aspirin 81 MG TAB.CHEW PO SCH (13:47)
[2017-12-07] MEDS: FLUoxetine 20 MG CAPSULE PO SCH (13:47)
[2017-12-07] MEDS: hydroCHLOROthiazide 25 MG TABLET PO SCH (13:47)
[2017-12-07] MEDS: Multivit/Ca/Min/Fe/FA 1 TAB TABLET PO SCH (13:47)
--- NOTE | 2017-12-07 15:30 | Internal Med Progress Note ---
Date of Encounter: 12/07/17 Time of Encounter: 15:28 - Assessment and plan (1) Chest pain Current Visit: Yes Status: Acute Assessment and plan: presented with intermittent chest pain for the last week. Serial troponins negative. Chest x-ray is negative. TTE with preserved EF, study technically suboptimal. No significant valvular dysfunction. Stress test negative for ischemia or infarct. Concerned for possible GI component as patient reported worsening GERD and sensation of gagging along with chest pain. 12/07/2017 EGD remarkable. Suspicion for true ACS serial troponins, echo and stress tests unremarkable. Patient does have a history of fibromyalgia which could be contributed chest pain, furthermore chest pain is reproducible on exam. No further cardiac workup indicated at this time. Can follow up outpatient Qualifiers: Chest pain type: unspecified Qualified Code(s): R07.9 - Chest pain, unspecified (2) GERD (gastroesophageal reflux disease) Current Visit: Yes Status: Acute Assessment and plan: reports hx severe heartburn/GERD and gagging sensation. 12/07/2016 EGD unremarkable. Cont home PPI Qualifiers: Esophagitis presence: esophagitis presence not specified Qualified Code(s) : K21.9 - Gastro-esophageal reflux disease without esophagitis (3) HTN (hypertension) Current Visit: Yes Status: Acute Assessment and plan: per hx. BP controlled. Cont home BP medication. Monitor BP and titrate PRN. Qualifiers: Hypertension type: essential hypertension Qualified Code(s): I10 - Essential (primary) hypertension (4) DVT prophylaxis Current Visit: Yes Status: Acute Assessment and plan: heparin - Subjective Interval history: Seen and examined at bedside; still with chest tenderness but overall improved. No shortness of breath. Just returned from EGD; would like to go home if possible. Patient received propofol for procedure therefore she will need to stay overnight if she does not have someone to drive her home. She is agreeable to the plan. - Constitutional Vitals: Temp Pulse Resp BP Pulse Ox 98.3 F 96 16 119/83 94 12/07/17 12:58 12/07/17 12:58 12/07/17 12:58 12/07/17 12:58 12/07/17 12:58 General appearance: Present: cooperative, A&O X 3, morbidly obese, pleasant, no acute distress, answers questions appropriately - Head Head exam: Present: atraumatic, normocephalic - Eye Eye exam: Present: PERRL, conjuntiva pink, sclera anicteric Pupils: Present: PERRL - Neck Neck exam general surgery: Present: supple, trachea midline. Absent: lymphadenopathy - Respiratory Respiratory exam: Present: chest wall tenderness (substernal chest wall tenderness with palpation ), CTAB. Absent: accessory muscle use, rales, rhonchi , wheezes - Cardiovascular Cardiovascular exam: Present: RRR, +S1, +S2. Absent: diastolic murmur, gallop, rubs, systolic murmur - GI/Abdominal GI/Abdominal exam: Present: normal bowel sounds, soft, no peritoneal signs. Absent: distended, tenderness - Extremities Exam Extremities exam: Present: warm, radial pulses palpable and symmetrical. Absent : calf tenderness, cyanotic, pedal edema - Neurological Exam Neurological exam: Present: CN II-XII intact, oriented X3, no focal deficits. Absent: pronater drift, facial droop, speech deficit - Skin Skin exam: Present: dry, intact Internal Medicine: Result - Labs CBC & Chem 7: 12/04/17 05:20 12/04/17 05:20 - ABG Interpretation ABG results: PT/INR, D-dimer D-Dimer 378 ng/mLFEU (0-500) 12/06/17 16:54 Consult Discharge Plan - Plan Referrals: Antonette Parsons [Primary Care Provider] - 12/14/17 9:30 am
[2017-12-07] MEDS: *HR* LORazepam 1 MG TABLET PO PRN (17:07)
[2017-12-07] MEDS: tiZANidine 4 MG TABLET PO PRN (20:11)
[2017-12-07] MEDS: Famotidine 20 MG TABLET PO SCH (20:12)
[2017-12-08] MEDS: *HR* Heparin 5,000 UNIT/ML VIAL SQ SCH (05:31)
[2017-12-08 06:58] VITALS: BP 119/77
[2017-12-08] MEDS: hydroCHLOROthiazide 25 MG TABLET PO SCH (08:11)
[2017-12-08] MEDS: Aspirin 81 MG TAB.CHEW PO SCH (08:11)
[2017-12-08] MEDS: Cholecalciferol (D-3) 1,000 UNIT TABLET PO SCH (08:11)
[2017-12-08] MEDS: Multivit/Ca/Min/Fe/FA 1 TAB TABLET PO SCH (08:11)
[2017-12-08] MEDS: Pantoprazole 40 MG VIAL IVP SCH (08:11)
[2017-12-08] MEDS: FLUoxetine 20 MG CAPSULE PO SCH (08:11)
[2017-12-08] MEDS ORDERED: *HR* HYDROcodone/Acet 10/325 mg TABLET PO ONE (08:19)
--- NOTE | 2017-12-08 08:48 | Discharge Summary ---
Date of Encounter: 12/08/17 Time of Encounter: 08:45 - Discharge Diagnosis (1) Chest pain Priority: Primary Status: Acute Comments: presented with intermittent chest pain for one week. OSH chest CTA negative for pulmonary embolism. Serial troponins negative. Chest x-ray is negative. TTE with preserved EF, no significant valvular dysfunction. Stress test negative for ischemia or infarct. Concerned for possible GI component as patient reported worsening GERD and sensation of gagging along with chest pain. 12/07/2017 EGD remarkable. Low suspicion for cardiac etiology as serial troponins, echo and stress test unremarkable. Patient does have a history of fibromyalgia which could be contributed chest pain, furthermore chest pain is reproducible on exam. Discussed inpatient Cardiology consultation versus outpatient follow-up with patient and she prefers to follow-up with her PCP. Advised to return to ER if CP/SOB worsens, recurs. Cont ASA, statin. Qualifiers: Chest pain type: unspecified Qualified Code(s): R07.9 - Chest pain, unspecified (2) GERD (gastroesophageal reflux disease) Priority: Secondary Status: Chronic Comments: reports hx severe heartburn/GERD and gagging sensation. 12/07/2016 EGD unremarkable. Cont home PPI Qualifiers: Esophagitis presence: esophagitis presence not specified Qualified Code(s) : K21.9 - Gastro-esophageal reflux disease without esophagitis (3) HTN (hypertension) Priority: Primary Status: Acute Comments: per hx however BP has been soft/borderline while inpatient. Home TIN and HCTZ decreased as patient reports intermittently low blood pressure at home. Patient advised to monitor BP at home and hold blood pressure medication if SBP less than 100. Recommend follow-up with PCP within 1-2 weeks. Qualifiers: Hypertension type: essential hypertension Qualified Code(s): I10 - Essential (primary) hypertension (4) Lumbar back pain Priority: Secondary Status: Chronic Comments: hx prior lumbar surgeries and chronic back pain. Follows with pain management. Continue home pain medication regimen. Follow up with pain management as previously planned. Qualifiers: Chronicity: chronic Back pain laterality: unspecified Sciatica presence: with sciatica Sciatica laterality: sciatica of right side Qualified Code(s) : M54.41 - Lumbago with sciatica, right side; G89.29 - Other chronic pain; G89.29 - Other chronic pain (5) Hyperlipidemia Priority: Secondary Status: Acute Comments: LDL; home statin increased. Lifestyle modifications encouraged. Qualifiers: Hyperlipidemia type: pure hypercholesterolemia Qualified Code(s): E78.00 - Pure hypercholesterolemia, unspecified; E78.0 - Pure hypercholesterolemia (6) Fibromyalgia Priority: Secondary Status: Chronic Comments: per hx. suspect this could be contributing to chest pain. Continue home pain medication, tizanidine - Discharge Medications Prescriptions: Atorvastatin [Lipitor] 20 mg PO HS #60 tablet Atorvastatin [Lipitor] 5 mg PO HS #30 tablet hydroCHLOROthiazide [Hydrochlorothiazide] 25 mg PO DAILY #30 tablet Home Medications: FLUoxetine HCl [Prozac] 40 mg PO DAILY 04/06/16 [History] Omeprazole 20 mg PO BID 04/06/16 [History] Cholecalciferol (Vitamin D3) [Vitamin D3] 50,000 unit PO QWEEK 10/28/16 [History ] Pantoprazole Sodium [Protonix] 40 mg PO DAILY 10/28/16 [History] hydrOXYzine pamoate [HydrOXYzine Pamoate] 50 mg PO Q8H PRN 06/22/17 [History] Aspirin 81 mg PO DAILY 12/04/17 [History] Ibuprofen 800 mg PO TID 12/04/17 [History] Iron Fum,Ps/FA/Vit B with C #9 [Integra Plus Capsule] 1 cap PO DAILY 12/04/17 [ History] Lisinopril [Zestril] 10 mg PO DAILY 12/04/17 [History] Quetiapine Fumarate [Seroquel] 200 mg PO HS 12/04/17 [History] Tizanidine HCl 8 mg PO BID PRN 12/04/17 [History] Atorvastatin [Lipitor] 5 mg PO HS #30 tablet 12/08/17 [Rx] Atorvastatin [Lipitor] 20 mg PO HS #60 tablet 12/08/17 [Rx] hydroCHLOROthiazide [Hydrochlorothiazide] 25 mg PO DAILY #30 tablet 12/08/17 [Rx ] Allergies/Adverse Reactions: 3 Allergy/AdvReac Type Severity Reaction Status Date / Time cephalexin Allergy Rash Verified 11/28/17 16:45 meperidine [From Demerol] Allergy Difficulty Verified 11/28/17 16:45 Breathing morphine Allergy Hives Verified 11/28/17 16:45 Penicillins [PCN] Allergy Rash Verified 11/28/17 16:45 Date of admission: 12/03/17 23:56 Primary care physician: Antonette Parsons Consults: 12/06/17 16:32 Consult to Gastroenterology [CONS] Routine Consulting Provider: Gastroenterology [facility] Reason for Consult: Hx GERD, gastritis. Now with chest pain and worsening reflux Call Completed: Yes Discharging clinician: Sandie Andino Anticipated date of discharge: 12/08/17 - Patient Status Disposition: Home, Self-Care Condition: Good Functional capacity at discharge: independent ambulation Overall status at discharge: patient is back to baseline - Discharge Instructions Instructions: Chest Pain (DC), Hypotension (DC) Follow Up With: Antonette Parsons [Primary Care Provider] - 12/14/17 9:30 am - Diet and Activity Activity: increase activity as tolerated Diet: low fat, low cholesterol Interval History: Seen and examined at bedside; still reports intermittent chest tenderness which is reproducible on exam. Discussed with patient inpatient cardiology consultation versus outpatient follow-up and patient prefers to follow-up with her PCP later next week. No chest pain or SOB on my exam. Patient advised to return to ER if CP/SOB worsens or recurs. Hospital course: See assessment and plan for hospital course - Time Spent with Patient Total time spent providing and/or coordinating discharge services: - Constitutional Vitals: Temp Pulse Resp BP Pulse Ox 97.8 F 102 18 119/77 92 12/08/17 06:57 12/08/17 06:57 12/08/17 06:57 12/08/17 06:57 12/08/17 06:57 General appearance: Present: cooperative, A&O X 3, morbidly obese, pleasant, no acute distress, answers questions appropriately - Head Head exam: Present: atraumatic, normocephalic - Eye Eye exam: Present: PERRL, conjuntiva pink, sclera anicteric Pupils: Present: PERRL - Neck Neck exam general surgery: Present: supple, trachea midline. Absent: lymphadenopathy - Respiratory Respiratory exam: Present: chest wall tenderness, CTAB. Absent: accessory muscle use, rales, rhonchi, wheezes - Cardiovascular Cardiovascular exam: Present: RRR, +S1, +S2. Absent: diastolic murmur, gallop, rubs, systolic murmur - GI/Abdominal GI/Abdominal exam: Present: normal bowel sounds, soft, no peritoneal signs. Absent: distended, tenderness - Extremities Exam Extremities exam: Present: warm, radial pulses palpable and symmetrical. Absent : calf tenderness, cyanotic, pedal edema - Neurological Exam Neurological exam: Present: CN II-XII intact, oriented X3, no focal deficits. Absent: pronater drift, facial droop, speech deficit - Skin Skin exam: Present: dry, intact
== END 2017-12-08 10:41 | disposition home or self-care (01) ==
LOC: EMEROO 19:54 → 3BNU 19:54
PROVIDERS: ADMIT Internal Medicine; ATTEND Registered Nurse
PROC: ENDOEBX (2017-12-07 11:30)

== ENCOUNTER 2018-10-02 09:22 | Inpatient (IN) ==
[2018-10-02] MEDS ORDERED: Ethanol\\Acetic Acid\\Na Ace\\Ben 1,000 ML IRRIG.SOLN IR ONE (09:31)
[2018-10-02] MEDS ORDERED: Albuterol 2.5 MG/3 ML NEBULIZER IH ONE (09:46)
--- NOTE | 2018-10-02 09:49 | Anesthesia Evaluation PreOp ---
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) Alcohol Use: none Drug use: none Medications and Allergies Pantoprazole Sodium [Protonix] 40 mg PO DAILY 10/28/16 [History] hydrOXYzine pamoate [HydrOXYzine Pamoate] 50 mg PO Q8H PRN 06/22/17 [History] Aspirin 81 mg PO DAILY 12/04/17 [History] Quetiapine Fumarate [Seroquel] 300 mg PO HS 12/04/17 [History] Tizanidine HCl 6 mg PO TID PRN 12/04/17 [History] hydroCHLOROthiazide [Hydrochlorothiazide] 25 mg PO DAILY #30 tablet 12/08/17 [Rx] Atorvastatin [Lipitor] 10 mg PO HS 02/23/18 [History] Fluticasone Propionate Nasal [Flonase] 2 spr NS DAILY PRN 02/23/18 [History] SUMAtriptan succinate [Imitrex] 25 mg PO DAILY PRN 02/23/18 [History] raNITIdine HCl [Zantac] 150 mg PO BID PRN 02/23/18 [History] Gabapentin [Neurontin] 100 mg PO TID 08/05/18 [History] Naproxen [Naprosyn] 500 mg PO BID 08/05/18 [History] Buspirone HCl [Buspar] 15 mg PO BID 10/02/18 [History] FLUoxetine HCl [PROzac] 20 mg PO TID 10/02/18 [History] Nystatin POWDER [Nystop] 1 appl TP BID 10/02/18 [History] Phenylephrine HCl/[place] Butter [Preparation H Suppository] 1 each RC DAILY PRN 10/02/18 [History] diazePAM [Valium] 10 mg PO TID PRN 10/02/18 [History] Allergy/AdvReac Type Severity Reaction Status Date / Time cephalexin Allergy Rash Verified 10/02/18 10:09 meperidine [From Demerol] Allergy Difficulty Verified 10/02/18 10:09 Breathing morphine Allergy Hives Verified 10/02/18 10:09 Penicillins [PCN] Allergy Rash Verified 10/02/18 10:09 - Meds/Allergy Pre-op Review Medications Reviewed: Yes Allergies Reviewed: Yes Beta Blockers on Current Med List: No Anesthesia Results - Labs Laboratory Tests 09/18/18 09/18/18 09/18/18 14:10 14:10 14:10 WBC 7.6 Hgb 13.1 Hct 39.2 Plt Count 407 H PT 10.8 INR 1.0 APTT 37.1 H Sodium 139 Potassium 3.4 L BUN 13 Creatinine 0.77 - Imaging EKG: report reviewed (12/03/2017 SINUS RHYTHM WITH MARKED SINUS ARRHYTHMIA Poor R wave progression) Additional studies: 12/05/2017 Stress Impression: Perfusion imaging was negative for ischemia or infarct. Pharmacologic stress ECG is negative for ischemia at level of heart rate achieved. Patient described 3/10 chest pain prior to the start of testing which persisted unchanged during testing. Gated EF > 70%. 12/04/2017 Echo Impressions: LVEF 60-65%. No pulmonary hypertension. Technically sub-optimal due to body habitus. No significant valvular dysfunction. Anesthesia Exam O2 Sat Height 1.63 m Weight 106.141 kg O2 Sat by Pulse Oximetry 97 Vital Signs Temp Pulse Resp BP Pulse Ox 98.7 F 86 18 144/81 97 10/02/18 09:47 10/02/18 09:47 10/02/18 09:47 10/02/18 09:47 10/02/18 09:47 Height: 5'4'' Weight: 234 lbs NPO (# of Hours): 8 Pain Scale: 7 (left shoulder) Pain Scale Used: Numeric (1 - 10) - HEENT Pupil (Motor): EOMI Mallampati: II Teeth: Normal (missing upper front tooth) Oral Opening: Greater than 3 - EXECUTIVE ADMINISTRATIVE ASSISTANT LOC: Oriented EXECUTIVE ADMINISTRATIVE ASSISTANT Motor: Normal RUE, Normal LUE, Normal RLE, Normal LLE, Normal Face EXECUTIVE ADMINISTRATIVE ASSISTANT Sensory: Normal: RUE, LUE, RLE, LLE, Face - Cardiac Rhythm: Regular Murmur: None Anesthesia Assess/Plan ASA Score: 3 Level of consciousness: Cooperative, Oriented, Tranquil Anesthetic Plan: General, Regional Nerve Block Regional Nerve Block Plan: Supraclavicular Monitoring Plan: Standard Monitors Recovery Plan: PACU
[2018-10-02] MEDS ORDERED: Clindamycin 900 MG/50 ML 900 MG/50 ML IV.SOLN IVPB ONE (09:55)
[2018-10-02] MEDS ORDERED: Ringers Solution, Lactated 1,000 ML IVC SCH ×2 (10:00→14:29)
[2018-10-02] MEDS ORDERED: *HR* FentaNYL (PF) 100 MCG/2 ML VIAL ONE (10:05)
[2018-10-02] MEDS ORDERED: Lidocaine -MPF 2% 2 ML VIAL ONE (10:05)
[2018-10-02] MEDS ORDERED: Ondansetron 4 MG/2 ML VIAL ONE (10:05)
[2018-10-02] MEDS ORDERED: *HR* Midazolam HCl 2 MG/2 ML VIAL ONE ×2 (10:07→10:52)
[2018-10-02] MEDS ORDERED: *HR* Propofol 200 MG/20 ML VIAL IVP ONE (10:07)
[2018-10-02] MEDS ORDERED: *HR* Rocuronium Bromide 50 MG/5 ML VIAL ONE (10:09)
[2018-10-02] MEDS ORDERED: *HR* Succinylcholine 200 MG/10 ML VIAL IVP ONE (10:09)
[2018-10-02] MEDS ORDERED: Dexamethasone 4 MG/ML VIAL ONE (10:09)
[2018-10-02] MEDS ORDERED: ROPIVACAINE HCL/PF 0.5% 30 ML VIAL ONE (10:25)
[2018-10-02] MEDS ORDERED: Bupivacaine/Clonidine Syringe 1 EACH SYRINGE ONE (10:25)
[2018-10-02] MEDS ORDERED: Scopolamine Patch 1.5 MG PATCH.TD72 TD ONE (10:41)
--- NOTE | 2018-10-02 10:54 | History & Physical Report ---
Date of Encounter: 10/02/18 Time of Encounter: 10:54 24 Hour HP Update - Instructions Instructions: If the History and Physical is less than 30 days old and was completed prior to A.M. admission and or procedure and has NOT been updated on calendar day of procedure please complete this update prior to performing procedure. - Update Patient reports changes in Medical Condition: No Changes in examination, assessment, or condition: No Changes in Medication: No Preop tests/diagnostics Reviewed: Yes Surgery Remains Indicated: Yes Consent for Planned Operative Procedure(s) Verified: Yes - Pre-Operative Checklist Preoperative Checklist Indicated: No Prophylactic Antibiotic Ordered: Yes Is VTE Prophylaxis Indicated?: Yes
[2018-10-02] MEDS ORDERED: Scopolamine Patch 1.5 MG PATCH.TD72 TD SCH (11:30)
[2018-10-02] MEDS ORDERED: *HR* Promethazine 25 MG/ML VIAL IVP PRN (12:10)
[2018-10-02] MEDS ORDERED: *HR* OxyCODONE Immed Rel 5 MG TABLET PO PRN ×2 (12:10→14:29)
--- NOTE | 2018-10-02 12:27 | Anesthesia Procedures ---
Date of Encounter: 10/02/18 Time of Encounter: 11:00 Procedures: Anesthesia - Nerve Block Procedure Date: 10/02/18 Time: 11:00 Surgical Procedure: left total shoulder Checklist: Correct Patient Identifier, Correct procedure Correct side: Left Blood Thinner: No Monitor Applied: EKG, BP, Pulse Oximetry Supplemental Oxygen via Nasal Cannula (L/min): 2 Sedation: Versed (mg): 4 Sedation: Fentanyl (mcg): 100 Indication: Post Op Analgesia Pre-op Neuro Deficits: No Block Type: Supraclavicular, Other (ICB/ICP) Catheter placed: No Sterile Technique: Yes Ultrasound used: Yes Anatomy identified: Yes Visual spread of Local: Yes Neuro Stimulation: No Blood on Needle Aspiration: No Smooth Injection of Local: Yes Pain with Injection of Local: No Prep: Chlorhexadine Needle: 22 x 50 mm Stimuplex Local: 0.25% Bupivicaine w/Clonidine 20 mcg/cc (20ml), Ropivacaine (0.5% with 8mg of decadron 30ml) Volume (cc): 50 Number of Attempts: 1 Complications: None/effective block Vitals: Vital Signs/O2 Sat, Most Current Temp Pulse Resp BP Pulse Ox 98.7 F 75 18 165/109 97 10/02/18 09:47 10/02/18 11:07 10/02/18 11:07 10/02/18 11:07 10/02/18 11:07
--- NOTE | 2018-10-02 13:04 | Orthopedic Operative Note ---
Date of procedure: 10/02/18 Pre-op diagnosis: Painful left total shoulder Post-op diagnosis: same (Aseptic loosening glenoid component) Procedure: Procedure: Total Shoulder Replacment Reverse, revision left Estimated blood loss: 100 cc Hardware: Metal and polyethylene replacement: Arthrex 24, +2 , 25 screw glenoid baseplate, 4 5.5 screw, 39+4 glenosphere, 6 humeral stem, poly insert 3 Exam Under anesthesia: All healed incision no swelling or erythema anterior instability Procedural Notes: Anterior subluxation of the humeral component in relation to the glenoid component, proximal humeral areas of nonunion. Operative procedure: The patient was brought to the operating room and placed on the operating room table. After general anesthesia was administered the operative shoulder was examined. Findings were noted. The patient was placed in the modified beachchair position. All pressure points were padded appropriately. And the head was stabilized in the neutral position. The operative extremity was prepped and draped in the sterile surgical fashion. The patient received IV antibiotics prior to skin incision. A standard deltopectoral approach was made to the operative shoulder. Incision was made through the old incision, through the skin and subcutaneous tissue,hemo stasis was obtained with Bovie cautery. Using careful blunt dissection the cephalic vein was identified and mobilized medially. The deltopectoral interval was developed and the clavipectoral fascia was incised. The subscap was released off the lesser tuberosity and tagged with #2 subscap was irreparable. 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 Etiology unknown. These were removed. Soft tissue was removed around from the component. Component was skeletonized proximally, was removed without significant bone loss. Attention was then turned to the glenoid. Anterior and posterior Bankart retractors were placed to expose the glenoid. The glenoid component was removed it was loose. The glenoid guide was seated and the centering hole was made. It was reamed with the appropriate reamer. The 24, +2, 25 mm screw, baseplate was seated and secured with 4 5.5 screw. The baseplate was irrigated and dried and the 39+4 Glenosphere was seated and secured with the Camacho taper. The Camacho taper was tested and found to be secure the humerus was redislocated and prepared with the diaphyseal reamers, followed by a broaching process up to the appropriate size 6 in 20 degrees of retroversion.. The metaphyseal reamer was then utilized. Trial reduction found the shoulder to be relocatable. Trial components were removed and 6 stem was impacted in place in the patient's anatomic version. Trial reduction found the shoulder to be relocatable and stable with the appropriate 3 Celeste Trial component was removed and the real implant was seated and secured the shoulder was reduced. The shoulder had excellent motion and excellent stability and no evidence of dislocation. The deep tissue was irrigated with pulse irrigation. The PA close the shoulder. The deltopectoral interval was closed with a running #1 PDS suture, subcutaneous tissue was irrigated and closed with 0 PDS suture, the skin was closed with Dermabond. The patient was placed in a sterile dressing, abduction brace and extubated. The patient was then transferred to the recovery room in stable condition. Surgeon: Raj Proctor Was there an medical practice assistant present: Yes Pediatric Nurse Practitioner: Alondra Marti Estimated blood loss (cc): 100 Condition: stable Disposition: PACU
[2018-10-02] MEDS: *HR* HYDROmorphone (PF) 1 MG/ML SYRINGE IVP PRN ×2 (13:39→13:44)
--- NOTE | 2018-10-02 14:09 | Anesthesia Evaluation Post Op ---
Date of Encounter: 10/02/18 Time of Encounter: 14:08 - Vital Signs Vital Signs: Vital Signs/O2 Sat, Most Current Temp Pulse Resp BP Pulse Ox 98.0 F 70 15 142/78 94 10/02/18 13:52 10/02/18 13:52 10/02/18 13:52 10/02/18 13:52 10/02/18 13:52 - Lungs Lungs: Clear Ascult./Percussion - Airway Airway: Non-obstructed - Cardiovascular Regular Rate - Mental Status Mental Status: Alert & Oriented, Answers Appropriately - Pain Pain Scale: 4 (burning sensation) Pain Scale used: Numeric (1 - 10) - Nausea Vomiting Nausea Vomiting: Not Present - Hydration Hydration: Ice chips, Has not voided - Discharge PostOp Status: Transfer Patient to floor
[2018-10-02] MEDS ORDERED: [UNRECOGNIZED DRUG - OTHER] RC PRN (14:29)
[2018-10-02] MEDS ORDERED: OXYCODONE Oral CONC 10 MG/0.5 ML ORAL.SYG SL PRN (14:29)
[2018-10-02] MEDS ORDERED: Sennosides 8.6 MG TABLET PO PRN (14:29)
[2018-10-02] MEDS ORDERED: Gabapentin 400 MG CAPSULE PO SCH (14:29)
[2018-10-02] MEDS ORDERED: Famotidine 20 MG TABLET PO PRN (14:29)
[2018-10-02] MEDS ORDERED: PHENYLEPHRINE RC PRN (14:29)
[2018-10-02] MEDS ORDERED: Naloxone 0.4 MG/ML INJ IVP PRN (14:29)
[2018-10-02] MEDS ORDERED: SUMAtriptan succinate 25 MG TABLET PO PRN (14:29)
[2018-10-02] MEDS ORDERED: Fluticasone Propionate Nasal 50 MCG/SPRAY BOTTLE NS PRN (14:29)
[2018-10-02] MEDS ORDERED: MOM Conc 10 ML UD.LIQ PO PRN (14:29)
[2018-10-02] MEDS ORDERED: Temazepam 15 MG CAPSULE PO PRN (14:29)
[2018-10-02] MEDS ORDERED: Ondansetron 4 MG/2 ML VIAL IVP PRN (14:29)
[2018-10-02 14:30] LABS: Hematocrit 38.4 % (35.3-44.9); Hemoglobin 12.5 g/dL (11.5-15.4)
[2018-10-02] MEDS ORDERED: Gabapentin 300 MG CAPSULE PO SCH (15:00)
[2018-10-02] MEDS ORDERED: Clindamycin 900 MG/50 ML 900 MG/50 ML IV.SOLN IVPB SCH (16:00)
[2018-10-02] MEDS: FLUoxetine 20 MG CAPSULE PO SCH ×2 (16:06→19:49)
[2018-10-02] MEDS: Acetaminophen IV 1,000 MG/100 ML INFUS..BTL IVPB SCH ×2 (16:06→22:30)
[2018-10-02] MEDS: OXYCODONE Oral CONC 10 MG/0.5 ML ORAL.SYG SL PRN (16:07)
--- NOTE | 2018-10-02 17:07 | Discharge Summary ---
Orders not resulted at time of discharge: Pending orders 10/02/18 08:06 XR shoulder complete LT [XR] Routine 10/02/18 10:41 US anesthesia pain block [US] Routine 10/02/18 13:01 Surgical Pathology [PTH] Routine 10/03/18 04:00 Basic Metabolic Panel AM 0400 Hemoglobin and Hematocrit [HEME] AM 0400 10/04/18 04:00 Basic Metabolic Panel AM 0400 Hemoglobin and Hematocrit [HEME] AM 0400 Date of Encounter: 10/06/18 Time of Encounter: 13:48 - Discharge Diagnosis (1) Status post reverse total replacement of left shoulder Priority: Primary Status: Acute Comments: Patient doing better, no indication of stroke. 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 She is neurologically stable. Will recommend no further testing. Please continue medical and supportive care. Will sign off at this time. Please call if any questions Plan: Continue as planned - Patient has genetic mutation and metabolized certain medication faster than normal; and we have properly controlled her pain while in the hospital. Pain reported 5/10. She is stable from orthopedic standpoint. Plan for D/C home today with home health. We called around to multiple pharmacies to see if any had the sublingual Oxycodone, and unfortunatly they did not have it anywhere. I explained to patient and she asked for IV dilaudid to go home, and I explained that this would not be appropriate for discharge home. She was agreeable to D/C home with Oxycodone 10mg Q 4 hours PO with a 5 day supply. Her pain regiment is as follows: Oxycodone 10mg q 4 hours PO prn severe pain - RX Celebrex 200mg BID PO - RX Tizanidine 4mg TID prn pain - resuming home medication Tylenol 325mg PO every 6 hours - OTC Lidoderm patches - placed in hospital Gabapentin 300mg TID - resuming home medication Stable for D/C today. (2) Loosening of shoulder joint prosthesis Priority: Primary Status: Acute Qualifiers: Encounter type: initial encounter Qualified Code(s): T84.038A - Mechanical loosening of other internal prosthetic joint, initial encounter; Z96.619 - Presence of unspecified artificial shoulder joint (3) Status post hardware removal Priority: Secondary Status: Acute (4) HTN (hypertension) Priority: Secondary Status: Chronic Qualifiers: Hypertension type: essential hypertension Qualified Code(s): I10 - Essential (primary) hypertension (5) Hyperlipidemia Priority: Secondary Status: Chronic Qualifiers: Hyperlipidemia type: mixed hyperlipidemia Qualified Code(s): E78.2 - Mixed hyperlipidemia (6) Genetic defect Priority: Secondary Status: Acute (7) Acute blood loss anemia Priority: Primary Status: Acute (8) Facial paresthesia Priority: Secondary Status: Acute Comments: Resolving. Discharging with Prednisone 20mg BID x 5 days (9) Morbid obesity with BMI of 40.0-44.9, adult Priority: Secondary Status: Chronic (10) AIDEN (obstructive sleep apnea) Priority: Secondary Status: Chronic - Hospital Course Hospital course: Ms. Moses is a 48 year old female , POD#4 Left TSR-reverse ball and socket - REVISION with removal of hardware 10/02/18 Patient doing better, no indication of stroke. She has new onset of right sided facial numnbess on 10/05 - stroke alert called, negative workup. 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 She is neurologically stable. Will recommend no further testing. Please continue medical and supportive care. Will sign off at this time. Please call if any questions Plan: Continue as planned - Patient has genetic mutation and metabolizes certain medication faster than normal; and we have properly controlled her pain while in the hospital through a multi-modal approach. She was denied ECF by insurance and is agreeable to home health. Pain reported 5/10 this AM. She is stable from orthopedic standpoint. Plan for D/C home today with home health. We called around to multiple pharmacies to see if any had the sublingual Oxycodone, and unfortunately they did not have it anywhere. I explained to patient and she asked for IV dilaudid to go home, and I explained that this would not be appropriate for discharge home. She was agreeable to D/C home with Oxycodone 10mg Q 4 hours PO with a 5 day supply. Her pain regiment is as follows: Oxycodone 10mg q 4 hours PO prn severe pain - RX Celebrex 200mg BID PO - RX Tizanidine 4mg TID prn pain - resuming home medication Tylenol 325mg PO every 6 hours - OTC Lidoderm patches - placed in hospital Gabapentin 300mg TID - resuming home medication Stable for D/C today. Vital signs stable: Vital Signs Temp Pulse Resp BP Pulse Ox 10/06/18 10:51 97.5 F L 91 16 120/78 95 10/06/18 06:39 97.4 F L 71 18 104/56 100 10/05/18 23:00 98.4 F 88 16 124/88 92 10/05/18 19:39 98.2 F 73 17 120/70 92 10/05/18 14:08 98.3 F 81 18 116/55 98 Intake and Output 10/05/18 10/06/18 10/06/18 23:59 07:59 15:59 Intake Total 400 / 400 Balance 400 / 400 Intake: Oral 400 / 400 Other: Meal Dinner Percent of Meal Consumed 100% # Voids 1 1 Short CBC 10/06/18 Range/Units 05:23 WBC 6.6 (4.3-11.1) K/mcL Hgb 9.5 L (11.5-15.4) g/dL Hct 29.3 L (35.3-44.9) % Plt Count 301 (140-400) K/mcL BMP 10/06/18 Range/Units 05:23 Sodium 139 (136-145) mEq/L Potassium 3.6 (3.5-5.1) mEq/L Chloride 103 (98-107) mEq/L Carbon Dioxide 30 H (23-29) mEq/L BUN 10 (6-20) mg/dL Creatinine 0.73 (0.60-1.20) mg/dL Glucose 125 H (70-105) mg/dL Calcium 8.8 (8.6-10.3) mg/dL - Time Spent with Patient Total time spent providing and/or coordinating discharge services: - Discharge Medications Prescriptions: Celecoxib [Celebrex] 200 mg PO BID PRN 30 Days #60 capsule PRN Reason: Pain Home Medications: Pantoprazole Sodium [Protonix] 40 mg PO DAILY 10/28/16 [History] hydrOXYzine pamoate [HydrOXYzine Pamoate] 50 mg PO Q8H PRN 06/22/17 [History] Aspirin 81 mg PO DAILY 12/04/17 [History] Quetiapine Fumarate [Seroquel] 300 mg PO HS 12/04/17 [History] Tizanidine HCl 6 mg PO TID PRN 12/04/17 [History] hydroCHLOROthiazide [Hydrochlorothiazide] 25 mg PO DAILY #30 tablet 12/08/17 [Rx] Atorvastatin [Lipitor] 10 mg PO HS 02/23/18 [History] Fluticasone Propionate Nasal [Flonase] 2 spr NS DAILY PRN 02/23/18 [History] SUMAtriptan succinate [Imitrex] 25 mg PO DAILY PRN 02/23/18 [History] raNITIdine HCl [Zantac] 150 mg PO BID PRN 02/23/18 [History] Buspirone HCl [Buspar] 15 mg PO BID 10/02/18 [History] FLUoxetine HCl [Prozac] 20 mg PO TID 10/02/18 [History] Nystatin POWDER [Nystop] 1 appl TP BID 10/02/18 [History] Phenylephrine HCl/[place] Butter [Preparation H Suppository] 1 each RC DAILY PRN 10/02/18 [History] diazePAM [Valium] 10 mg PO TID PRN 10/02/18 [History] Acetaminophen [Tylenol] 325 mg PO Q6HR PRN tablet 10/06/18 [Rx] Celecoxib [Celebrex] 200 mg PO BID PRN 30 Days #60 capsule 10/06/18 [Rx] Gabapentin [Neurontin] 300 mg PO TID capsule 10/06/18 [Rx] Lidocaine Patch [Lidoderm 5% patch] 1 each TP DAILY adh..patch 10/06/18 [Rx] OxyCODONE Immed Rel [Roxicodone 5 MG] 10 mg PO Q4HR PRN 5 Days #30 tablet 10/06/18 [Rx] Allergies/Adverse Reactions: Allergy/AdvReac Type Severity Reaction Status Date / Time cephalexin Allergy Rash Verified 10/02/18 10:09 meperidine [From Demerol] Allergy Difficulty Verified 10/02/18 10:09 Breathing morphine Allergy Hives Verified 10/02/18 10:09 Penicillins [PCN] Allergy Rash Verified 10/02/18 10:09 Date of admission: 10/02/18 15:27 Primary care physician: PCP NONE Consults: 10/02/18 14:29 Consult to Occupational Therapy [CONS] Routine Comment: post shoulder surgery Reason for Consult: post shoulder surgery Does patient have active BEDREST order?: No Is patient medically & hemodynamically stable?: Yes Consult to Physical Therapy [CONS] Routine Comment: post shoulder surgery Reason for Consult: post shoulder surgery Does patient have active BEDREST order?: No Is patient medically & hemodynamically stable?: Yes RT Post Op Consult [CONS] Routine 10/02/18 15:39 Consult to Pastoral Services [CONS] Routine Comment: Anticipated date of discharge: 10/06/18 Labs on day of discharge: Labs from last 24 hours 10/02/18 13:45 Hgb 12.5 Hct 38.4 - Impressions ITS Impressions Shoulder X-Ray 10/02/18 09:57 IMPRESSION: Uncomplicated left shoulder arthroplasty Partial resection of the distal clavicle D/ / 10/02/2018 11:49:06 Luis Felipe Hyde MD / [facility] Interpreting Provider: Luis Felipe Hyde MD - Patient Status Disposition: Home Health Service Condition: Good Functional capacity at discharge: independent ambulation Overall status at discharge: patient is progressing back to baseline - Discharge Instructions Follow Up With: NONE,PCP [Primary Care Provider] -
[2018-10-02] MEDS ORDERED: *HR* Enoxaparin 30 MG/0.3 ML SYRINGE SQ SCH ×2 (18:00)
[2018-10-02] MEDS: Ketorolac 15 MG/ML VIAL IVP PRN (18:01)
[2018-10-02] MEDS: *HR* HYDROmorphone 4 MG TABLET PO PRN (19:48)
[2018-10-02] MEDS: Gabapentin 400 MG CAPSULE PO SCH (19:49)
[2018-10-02] MEDS: Clindamycin 900 MG/50 ML 900 MG/50 ML IV.SOLN IVPB SCH (19:50)
--- NOTE | 2018-10-02 19:55 | Physician Discharge Referral ---
ExtendedCare Referral Info Transfer To: F Provider in Charge after Transfer: PCP Institutional Level of Care: Skilled - Diagnosis (1) Status post reverse total replacement of left shoulder Priority: Primary Status: Acute (2) Status post hardware removal Priority: Primary Status: Acute (3) Loosening of shoulder joint prosthesis Priority: Primary Status: Acute (4) HTN (hypertension) Status: Acute (5) Iron deficiency anemia Status: Acute (6) Dyslipidemia Status: Chronic (7) Fibromyalgia Status: Chronic (8) Former smoker Status: Chronic (9) GERD (gastroesophageal reflux disease) Status: Chronic (10) Lumbar back pain Status: Chronic (11) Morbid obesity with BMI of 40.0-44.9, adult Status: Chronic (12) AIDEN (obstructive sleep apnea) Status: Chronic Expected Duration of Placement: < 30 days - Transfer Medications Home Medications: Pantoprazole Sodium [Protonix] 40 mg PO DAILY 10/28/16 [History] hydrOXYzine pamoate [HydrOXYzine Pamoate] 50 mg PO Q8H PRN 06/22/17 [History] Aspirin 81 mg PO DAILY 12/04/17 [History] Quetiapine Fumarate [Seroquel] 300 mg PO HS 12/04/17 [History] Tizanidine HCl 6 mg PO TID PRN 12/04/17 [History] hydroCHLOROthiazide [Hydrochlorothiazide] 25 mg PO DAILY #30 tablet 12/08/17 [Rx] Atorvastatin [Lipitor] 10 mg PO HS 02/23/18 [History] Fluticasone Propionate Nasal [Flonase] 2 spr NS DAILY PRN 02/23/18 [History] SUMAtriptan succinate [Imitrex] 25 mg PO DAILY PRN 02/23/18 [History] raNITIdine HCl [Zantac] 150 mg PO BID PRN 02/23/18 [History] Gabapentin [Neurontin] 100 mg PO TID 08/05/18 [History] Naproxen [Naprosyn] 500 mg PO BID 08/05/18 [History] Buspirone HCl [Buspar] 15 mg PO BID 10/02/18 [History] FLUoxetine HCl [PROzac] 20 mg PO TID 10/02/18 [History] Nystatin POWDER [Nystop] 1 appl TP BID 10/02/18 [History] Phenylephrine HCl/[place] Butter [Preparation H Suppository] 1 each RC DAILY PRN 10/02/18 [History] diazePAM [Valium] 10 mg PO TID PRN 10/02/18 [History] Allergies/Adverse Reactions: Allergy/AdvReac Type Severity Reaction Status Date / Time cephalexin Allergy Rash Verified 10/02/18 10:09 meperidine [From Demerol] Allergy Difficulty Verified 10/02/18 10:09 Breathing morphine Allergy Hives Verified 10/02/18 10:09 Penicillins [PCN] Allergy Rash Verified 10/02/18 10:09 - Respiratory Orders Smoking Cessation: Smoking cessation has been advised. For more information, call the [place] Tobacco Quit Line at 0-895-JIST-NOW. - Advance Directives Code Status: Full Code - Mobility Orders Chair, Ambulate - Rehabiliation Orders Rehab Potential: Good Rehab Orders: ROM Exercises, Evaluation for Physical Therapy, Evaluation for Occupational Therapy - Treatments List/Other: Opsite dressing, leave intact until first post-operative visit. Zipline in place, plan to remove at post-operative day #14-16. If dressing becomes >50% saturated, contact office, remove dressing and place appropriate dressing in its place. Do not allow for dressing to get wet. Shoulder Precautions x 6 weeks. Apply cold therapy wrap 3-6x/day for 20 minutes at a time. Encourage ambulation throughout the day. Use Incentive spirometer 10x/hour. Elevate affected extremity above heart as tolerated. NWB to affected upper extremity x 6 weeks. Will remove brace at first post-operative appointment. OK to remove during PT/OT and Home exercises. - Diet Orders Regular CERTIFICATION: I certify that the transfer of the above named patient to an Extended Care Facility is necessary for the continuing treatment of the diagnosis listed. The above information is true and accurate reflection of patient's current condition. Confidential - Redisclosure prohibited without a patient's written consent.
[2018-10-02] MEDS: Nystatin POWDER 30 GM BOTTLE TP SCH (22:30)
[2018-10-03] MEDS: Ketorolac 15 MG/ML VIAL IVP PRN ×3 (02:17→23:36)
[2018-10-03] MEDS: Clindamycin 900 MG/50 ML 900 MG/50 ML IV.SOLN IVPB SCH (03:51)
[2018-10-03 05:46] LABS: Hematocrit 30.8 % (35.3-44.9)
[2018-10-03 05:47] LABS: Hemoglobin 10.3 g/dL (11.5-15.4)
[2018-10-03] MEDS ORDERED: *HR* Enoxaparin 40 MG/0.4 ML SYRINGE SQ SCH (06:00)
[2018-10-03] MEDS: *HR* Enoxaparin 30 MG/0.3 ML SYRINGE SQ SCH ×2 (06:04→18:58)
[2018-10-03] MEDS: Acetaminophen IV 1,000 MG/100 ML INFUS..BTL IVPB SCH ×4 (06:04→21:01)
[2018-10-03 06:11] LABS: BUN/Creatinine Ratio 16 (6-26); Blood Urea Nitrogen 14 mg/dL (6-20); Calcium 8.8 mg/dL (8.6-10.3); Carbon Dioxide 22 mEq/L (23-29); Chloride 105 mEq/L (98-107); Glucose 157 mg/dL (70-105); Osmolality,Calculated 288 (280-300); Sodium 137 mEq/L (136-145); eGFR For Non-African Americans > 60 (> 60)
--- NOTE | 2018-10-03 06:49 | Orthopedics Progress Note ---
Date of Encounter: 10/03/18 Time of Encounter: 06:49 Subjective Interval history: Patient was seen this morning doing well without complaints. Afebrile vital signs stable. Operative extremity: Neurovascularly intact Dressing clean dry and intact Calves nontender Assessment and plan: Continue with postoperative care Hematocrit 30 Objective Vital signs: Vital Signs Temp Pulse Resp BP Pulse Ox 10/03/18 03:37 97.8 F 91 12 94/59 93 10/03/18 00:24 98.5 F 101 14 114/75 93 10/02/18 18:59 99.0 F 88 18 128/62 95 10/02/18 18:13 98.8 F 102 16 155/92 94 10/02/18 16:16 98.1 F 76 16 134/78 94 10/02/18 15:00 98.1 F 85 15 126/59 93 10/02/18 14:31 98.4 F 72 14 136/88 93 10/02/18 14:12 97.9 F 68 19 133/81 94 10/02/18 14:02 67 14 124/71 94 10/02/18 13:52 98.0 F 70 15 142/78 94 10/02/18 13:42 69 17 136/81 93 10/02/18 13:32 81 15 125/66 93 10/02/18 13:22 98.2 F 88 16 125/78 98 10/02/18 11:07 75 18 165/109 97 10/02/18 09:47 98.7 F 86 18 144/81 97 Intake and Output 10/02/18 10/02/18 10/03/18 15:59 23:59 07:59 Intake Total 250 / 250 0 / 0 Output Total 100 / 100 0 / 0 0 / 0 Balance -100 / -100 250 / 250 0 / 0 Intake: IV Fluids 250 / 250 Ofirmev 1,000 mg/100 ml 1,000 200 / 200 mg In 100 ml @ 400 mls/hr IVPB Q6H [facility] Rx#:[id number] Cleocin Premix 900 MG/50 ML 900 50 / 50 mg In 50 ml @ 50 mls/hr IVPB Q8H [facility] Rx#:[id number] Oral 0 / 0 0 / 0 Output: Urine 0 / 0 0 / 0 Estimated Blood Loss 100 / 100 Other: # Voids 1 Weight 106.141 kg 107.4 kg Patient Weight 10/03/18 23:59 Weight 107.4 kg - Labs CBC & BMP: 10/03/18 05:31 10/03/18 05:31 Labs: Abnormal lab results Hgb 10.3 g/dL (11.5-15.4) L D 10/03/18 05:31 Hct 30.8 % (35.3-44.9) L 10/03/18 05:31 Carbon Dioxide 22 mEq/L (23-29) L 10/03/18 05:31 Glucose 157 mg/dL (70-105) H 10/03/18 05:31 Consult Discharge Plan - Plan Referrals: NONE,PCP [Primary Care Provider] -
[2018-10-03] MEDS: FLUoxetine 20 MG CAPSULE PO SCH ×3 (07:49→21:02)
[2018-10-03] MEDS: Aspirin 81 MG TAB.CHEW PO SCH (07:49)
[2018-10-03] MEDS: OXYCODONE Oral CONC 10 MG/0.5 ML ORAL.SYG SL PRN ×3 (07:50→21:29)
[2018-10-03] MEDS: Gabapentin 400 MG CAPSULE PO SCH ×3 (07:50→21:02)
[2018-10-03] MEDS: hydroCHLOROthiazide 25 MG TABLET PO SCH (07:58)
[2018-10-03] MEDS: hydrOXYzine pamoate 25 MG CAPSULE PO PRN (08:08)
[2018-10-03] MEDS: Nystatin POWDER 30 GM BOTTLE TP SCH ×2 (08:09→23:36)
[2018-10-03] MEDS: *HR* HYDROmorphone 4 MG TABLET PO PRN (11:47)
[2018-10-03] MEDS: diazePAM 10 MG TABLET PO PRN ×2 (13:21→21:29)
--- NOTE | 2018-10-03 16:40 | Event Note ---
Date of Encounter: 10/03/18 Time of Encounter: 12:20 PCR - POD#1 s/p Left TSR reverse revision 10/02/18 Patient seen at bedside, without complaints. A&O x 3 Afebrile, vital signs stable. Dressings c/d/i, grossly NV intact distally. Labs reviewed. H/H - 10.330.8 stable, asymptomatic Pain control: adequate, rated 5/10 with current plan and has not had to use IV dilaudid to this point, discussed with patient reserving for severe breakthrough pain. Filomena had long discussion with patient about pain control prior to today's exam. Plan for patient to be DC to ECF for access to IV pain medications as necessary due to her fast metabolism of medications in the past. Will reassess pain control on POD#3 to determine further pain management plan upon DC. Participating in PT. All questions and concerns addressed. Educated on use of incentive spirometer. Encouraged ambulation and proper hydration. Patient educated on post-operative restrictions and post-operative care. Assessment and plan: Continue with postoperative care Discharge plan: [facility], pending acceptance and authorization
[2018-10-03] MEDS: *HR* HYDROmorphone (PF) 1 MG/ML SYRINGE IVP PRN (17:28)
[2018-10-03] MEDS: tiZANidine 4 MG TABLET PO PRN (21:03)
[2018-10-04] MEDS: Acetaminophen IV 1,000 MG/100 ML INFUS..BTL IVPB SCH ×4 (04:31→21:21)
[2018-10-04 05:17] LABS: Hematocrit 28.1 % (35.3-44.9); Hemoglobin 9.2 g/dL (11.5-15.4)
[2018-10-04 05:36] LABS: BUN/Creatinine Ratio 17 (6-26); Blood Urea Nitrogen 18 mg/dL (6-20); Calcium 8.7 mg/dL (8.6-10.3); Carbon Dioxide 26 mEq/L (23-29); Chloride 102 mEq/L (98-107); Glucose 125 mg/dL (70-105); Osmolality,Calculated 283 (280-300); Potassium 3.6 mEq/L (3.5-5.1); Sodium 135 mEq/L (136-145); eGFR For Non-African Americans 55 (> 60)
[2018-10-04] MEDS: Ketorolac 15 MG/ML VIAL IVP PRN (06:24)
[2018-10-04] MEDS: *HR* Enoxaparin 30 MG/0.3 ML SYRINGE SQ SCH ×2 (06:24→18:36)
--- NOTE | 2018-10-04 08:45 | Orthopedics Progress Note ---
Date of Encounter: 10/04/18 Time of Encounter: 08:44 Subjective Interval history: Patient was seen this morning doing well without complaints. Afebrile vital signs stable. Operative extremity: Neurovascularly intact Dressing clean dry and intact Calves nontender Assessment and plan: Continue with postoperative care Objective Vital signs: Vital Signs Temp Pulse Resp BP Pulse Ox 10/04/18 06:36 97.4 F L 66 16 111/66 94 10/04/18 02:42 69 12 101/69 93 10/04/18 00:13 97.6 F 68 16 100/66 90 10/03/18 21:01 96 10/03/18 18:24 98.2 F 82 16 145/91 96 10/03/18 16:35 97.8 F 76 16 124/71 95 10/03/18 11:31 98.0 F 74 16 131/78 97 Intake and Output 10/03/18 10/04/18 10/04/18 23:59 07:59 15:59 Intake Total 100 / 100 100 / 100 Balance 100 / 100 100 / 100 Intake: IV Fluids 100 / 100 100 / 100 Ofirmev 1,000 mg/100 ml 1,000 100 / 100 100 / 100 mg In 100 ml @ 400 mls/hr IVPB Q6H [facility] Rx#:[id number] Other: # Voids 1 - Labs CBC & BMP: 10/04/18 04:49 10/04/18 04:49 Labs: Abnormal lab results Hgb 9.2 g/dL (11.5-15.4) L 10/04/18 04:49 Hct 28.1 % (35.3-44.9) L 10/04/18 04:49 Sodium 135 mEq/L (136-145) L 10/04/18 04:49 Est GFR (Non-Af Amer) 55 (> 60) L 10/04/18 04:49 Glucose 125 mg/dL (70-105) H 10/04/18 04:49 Consult Discharge Plan - Plan Referrals: NONE,PCP [Primary Care Provider] -
[2018-10-04] MEDS: FLUoxetine 20 MG CAPSULE PO SCH ×3 (09:30→21:08)
[2018-10-04] MEDS: Gabapentin 400 MG CAPSULE PO SCH ×3 (09:30→21:08)
[2018-10-04] MEDS: hydroCHLOROthiazide 25 MG TABLET PO SCH (09:30)
[2018-10-04] MEDS: *HR* HYDROmorphone (PF) 1 MG/ML SYRINGE IVP PRN (09:42)
[2018-10-04] MEDS: Aspirin 81 MG TAB.CHEW PO SCH (11:19)
[2018-10-04] MEDS: tiZANidine 4 MG TABLET PO PRN ×2 (15:35→21:19)
[2018-10-04] MEDS: OXYCODONE Oral CONC 10 MG/0.5 ML ORAL.SYG SL PRN (15:36)
[2018-10-04] MEDS: Nystatin POWDER 30 GM BOTTLE TP SCH ×2 (16:26→21:20)
--- NOTE | 2018-10-04 19:49 | Event Note ---
Date of Encounter: 10/04/18 Time of Encounter: 12:50 PCR - POD#2 s/p Left TSR reverse revision 10/02/18 Patient seen at bedside, without complaints. A&O x 3 Afebrile, vital signs stable. Dressings c/d/i, grossly NV intact distally. Labs reviewed. H/H - 9.2/28.1 stable, asymptomatic Pain control: currently adequate,has had total of 2 doses IV dilaudid since surgery. discussed with patient reserving for severe breakthrough pain. Plan was for patient to be DC to [facility] for access to IV pain medications as necessary due to her fast metabolism of medications in the past. However she was declined at [facility] due to good progress with therapy. Nursing facility not legally able to give IV pain medications. Will reassess pain control on POD#3 to determine further pain management plan upon DC. Will discuss further plan with Dr. Proctor. Participating in PT. All questions and concerns addressed. Educated on use of incentive spirometer. Encouraged ambulation and proper hydration. Patient educated on post-operative restrictions and post-operative care. Assessment and plan: Continue with postoperative care Discharge plan: possible HH, pending pain control.
[2018-10-04] MEDS: *HR* HYDROmorphone 4 MG TABLET PO PRN (21:15)
[2018-10-05] MEDS: *HR* Enoxaparin 30 MG/0.3 ML SYRINGE SQ SCH ×2 (06:22→19:57)
[2018-10-05] MEDS: Acetaminophen IV 1,000 MG/100 ML INFUS..BTL IVPB SCH (07:26)
--- NOTE | 2018-10-05 07:56 | Orthopedics Progress Note ---
Date of Encounter: 10/05/18 Time of Encounter: 07:56 Subjective Interval history: Patient was seen this morning heavily sedated Afebrile vital signs stable. Operative extremity: Neurovascularly intact Dressing clean dry and intact Calves nontender Assessment and plan: Continue with postoperative care plan for discharge Objective Vital signs: Vital Signs Temp Pulse Resp BP Pulse Ox 10/05/18 07:18 98.5 F 96 18 126/80 93 10/05/18 03:47 97.9 F 70 16 110/72 97 10/04/18 23:26 98.1 F 71 14 105/73 96 10/04/18 19:05 98.4 F 70 18 108/69 95 10/04/18 17:12 98.3 F 81 16 128/76 95 10/04/18 16:21 98.6 F 104 15 123/79 100 10/04/18 12:31 97.7 F 69 16 121/69 96 Intake and Output 10/04/18 10/04/18 10/05/18 15:59 23:59 07:59 Intake Total 580 / 580 1040 / 1040 650 / 650 Balance 580 / 580 1040 / 1040 650 / 650 Intake: IV Fluids 100 / 100 100 / 100 100 / 100 Ofirmev 1,000 mg/100 ml 1,000 100 / 100 100 / 100 100 / 100 mg In 100 ml @ 400 mls/hr IVPB Q6H [facility] Rx#:[id number] Oral 480 / 480 940 / 940 550 / 550 Other: Meal Breakfast Percent of Meal Consumed 70% # Voids 1 1 Weight 107.6 kg Patient Weight 10/05/18 23:59 Weight 107.6 kg - Labs CBC & BMP: 10/04/18 04:49 10/04/18 04:49 Labs: Abnormal lab results Hgb 9.2 g/dL (11.5-15.4) L 10/04/18 04:49 Hct 28.1 % (35.3-44.9) L 10/04/18 04:49 Sodium 135 mEq/L (136-145) L 10/04/18 04:49 Est GFR (Non-Af Amer) 55 (> 60) L 10/04/18 04:49 Glucose 125 mg/dL (70-105) H 10/04/18 04:49 Consult Discharge Plan - Plan Referrals: NONE,PCP [Primary Care Provider] -
[2018-10-05] MEDS ORDERED: Celecoxib 200 MG CAPSULE PO PRN (08:43)
[2018-10-05] MEDS: OXYCODONE Oral CONC 10 MG/0.5 ML ORAL.SYG SL PRN ×2 (09:01→23:42)
[2018-10-05] MEDS: Gabapentin 400 MG CAPSULE PO SCH ×3 (09:06→19:56)
[2018-10-05] MEDS: Aspirin 81 MG TAB.CHEW PO SCH (09:06)
[2018-10-05] MEDS: FLUoxetine 20 MG CAPSULE PO SCH ×3 (09:06→19:56)
[2018-10-05] MEDS: hydroCHLOROthiazide 25 MG TABLET PO SCH (09:06)
[2018-10-05] MEDS: tiZANidine 4 MG TABLET PO PRN ×2 (10:34→17:46)
[2018-10-05] MEDS ORDERED: Scopolamine Patch 1.5 MG PATCH.TD72 TD SCH (11:30)
[2018-10-05 11:34] LABS: Basophils # 0.1 K/mcL (0.0-0.2); Basophils % 0.8 %; Eosinophils # 0.3 K/mcL (0.0-0.6); Eosinophils % 3.5 %; Hematocrit 30.7 % (35.3-44.9); Hemoglobin 9.9 g/dL (11.5-15.4); Immature Granulocytes % 1.1 % (0-4); Lymphocytes # 3.5 K/mcL (0.6-4.6); Lymphocytes % 41.2 %; Mean Corpuscular HGB Conc 32.2 g/dL (31.6-35.5); Mean Corpuscular Hemoglobin 26.3 pg (28.0-33.3); Mean Corpuscular Volume 81.6 fL (83.0-100.0); Mean Platelet Volume 9.6 fL (9.4-12.4); Monocytes # 0.6 K/mcL (0.0-1.3); Monocytes % 6.8 %; Nucleated Red Blood Cells 0.4 /100 WBC (0); Platelet Count 349 K/mcL (140-400); Red Blood Count 3.76 M/mcL (3.82-4.97); Red Cell Distribution Width 12.6 % (11.5-14.5); Segmented Neutrophils % 46.6 %
--- NOTE | 2018-10-05 12:11 | Event Note ---
Date of Encounter: 10/06/18 Time of Encounter: 08:00 Patient was seen at bedside - pain medication again discussed in depth. She reported new Right sided facial numbness and swelling. Neuro exam performed; no neuro deficits. Hospitalist consulted for eval. Hospitalist requested stroke alert to be called; so it was called.
[2018-10-05] MEDS ORDERED: Isovue-370 500 ML INFUS..BTL IV ONE (12:13)
[2018-10-05 12:18] LABS: INR 0.9; Prothrombin Time 10.5 Seconds (9.4-12.1)
[2018-10-05 12:21] LABS: Activated Partial Thrombo Time 35.4 Seconds (26.0-36.0)
[2018-10-05 13:13] LABS: BUN/Creatinine Ratio 16 (6-26); Blood Urea Nitrogen 13 mg/dL (6-20); Calcium 8.7 mg/dL (8.6-10.3); Carbon Dioxide 28 mEq/L (23-29); Chloride 106 mEq/L (98-107); Glucose 119 mg/dL (70-105); Osmolality,Calculated 291 (280-300); Potassium 3.6 mEq/L (3.5-5.1); Sodium 140 mEq/L (136-145); eGFR For Non-African Americans > 60 (> 60)
[2018-10-05] MEDS: Nystatin POWDER 30 GM BOTTLE TP SCH ×2 (13:31→19:58)
[2018-10-05] MEDS: Acetaminophen 325 MG TABLET PO PRN ×2 (13:33→20:11)
--- NOTE | 2018-10-05 14:33 | Event Note ---
Date of Encounter: 10/05/18 Time of Encounter: 11:12 Stroke alert was called at 1112 for right-sided facial numbness and tingling. Patient was seen and examined at bedside at 11:14 AM She reports that she woke up in the morning as her usual self, got onto on the phone around 7:30 AM and felt as though the right side of her face around her nose cheek up-to-date year and down to the neck and over to her chin felt numb and was tingling. She thought that her symptoms would go away by themselves so she did not say anything to the nursing staff however around 11 since her symptoms had not resolved he decided to tell the nursing staff. Stroke was alert was called at that time. She reports that she has never had any symptoms like this before, denies previous strokes, denies recent facial trauma, no dental pain, denies hearing loss or vision changes or difficulty speaking. Denies any weakness in any of her extremities denies loss of sensation or paresthesia in any of her extremities. She has no other complaints abdomen the right-sided facial numbness and tingling. Vital signs are stable Morbidly obese, in no acute distress PERRLA, EOMI, anicteric, normocephalic, atraumatic Clear to auscultation bilaterally Regular rate and rhythm, S1 and S2 Abdomen is obese, bowel sounds positive, no organomegaly noted, soft, nontender Moving all extremities spontaneously, no edema, no calf tenderness Alert and oriented 4, speech is comprehendible, cranial nerves II through XII is intact, sensation to the right face below the eyebrow is decreased as compared to the left side, wrinkling forehead, tongue midline, strength is 5 out of 5 in all extremities, 2 point discrimination intact, heel to moser intact, rapid hand movement intact. Assessment and plan Right-sided facial numbness and tingling rule out stroke Stroke alert was called Discussed case with [facility] who recommended CT angiogram of the head and neck Patient has multiples surgeries with metals along with stimulator in her back which she is unsure if this MRI compatible, nursing staff instructed to call the company by the card the patient reports she can provide. Lipid panel, A1c, TSH in the a.m. Continue aspirin and statins daily Neuro checks every 4 hours if she develops any other symptoms get CT head stat Follow a.m. labs Maintains LDL less than 75 Neurology consulted - follow recommendations Hold off pain medications for now DVT prophylaxis as per orthopedics Cardiac monitoring katia Wolf Hospitalist
--- NOTE | 2018-10-05 16:29 | Neurology - Consult Note ---
Date of Encounter: 10/05/18 Time of Encounter: 16:22 Assessment and Plan (1) Facial paresthesia Current Visit: Yes Status: Acute 48 year old woman post op day 4 after left shoulder replacement surgery who developed acute onset of isolated right facial paresthesia involving mostly the third branch of trigeminal nerve territory without limb involvement and without speech difficulty or motor weakness. 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 Cerebral infarct is unlikely considering her symptoms and age. Prognosis of such symptoms difficult to predict. Will recommend continuing aspirin 81mg daily. Would recommend TTE. Prognosis of such symptoms difficult to predict. Please continue medical and post surgical care History of Present Illness Chief complaint: right facial numbness HPI: Ms. Moses is a 48 year old female with PMH significant for chronic migraine, fibromyalgia, s/p lumbar fusion surgery, s/p left shoulder replacement, depression, DM, obesity, chronic pain syndrome who is post op day number 3 of left shoulder replacement who developed acute onset of right facial paresthesia. Symptoms started this morning, while she was trying to call her she noticed that she would not feel the phone when touching her right face. The paresthesia is at the right jaw line, her lower cheek. She can feel the touch but it was different than the left side. no speech difficulty, no limb weakness and no mental status changes. CT of head was normal. Called [facility] stroke team who recommended CTA of neck and brain, which returned unremarkable study but it images were contaminated by metal artefact. Currently the patient still has the facial numbness to the right side, rest of cranial nerves are normal. Past Med Surg Social Fam HX - Past Medical History Medical history: GERD, hyperlipidemia, hypertension, other Additional medical history: Obstructive Sleep Apnea. Fibromylagia. Bipolar disorder. Chronic pain-lumbar area Psychiatric history: anxiety, bipolar, depression - Past Surgical History Surgical History: cholecystectomy, hysterectomy, orthopedic, other, sinus surgery, other Additional surgical history: tonsillectomy. shoulder replacement 2012. Sinus surgery 1995. Spinal Fusion 2016. Spinal Cord stimulator insertion 06/19/18 - Social History Smoking Status: Former smoker Smokeless Tobacco Status: No Alcohol use: none Drug use: none - Family History Father Living Status: Still Living Hx Family Cardiac Disorders: Yes (MT X 4 CHF, PACER ,) Hx Family Respiratory Disorders: No Hx Family Cancer: No Hx Family GI Disorders: No Hx Family Endocrine Disorder: Yes (DM) Hx Family Neuromuscular Disorders: No Hx Family Neurologic Disorders: No Hx Family HEENT Disorders: No Hx Family Autoimmune Disorders: No Medications and Allergies Pantoprazole Sodium [Protonix] 40 mg PO DAILY 10/28/16 [History] hydrOXYzine pamoate [HydrOXYzine Pamoate] 50 mg PO Q8H PRN 06/22/17 [History] Aspirin 81 mg PO DAILY 12/04/17 [History] Quetiapine Fumarate [Seroquel] 300 mg PO HS 12/04/17 [History] Tizanidine HCl 6 mg PO TID PRN 12/04/17 [History] hydroCHLOROthiazide [Hydrochlorothiazide] 25 mg PO DAILY #30 tablet 12/08/17 [ Rx] Atorvastatin [Lipitor] 10 mg PO HS 02/23/18 [History] Fluticasone Propionate Nasal [Flonase] 2 spr NS DAILY PRN 02/23/18 [History] SUMAtriptan succinate [Imitrex] 25 mg PO DAILY PRN 02/23/18 [History] raNITIdine HCl [Zantac] 150 mg PO BID PRN 02/23/18 [History] Gabapentin [Neurontin] 100 mg PO TID 08/05/18 [History] Naproxen [Naprosyn] 500 mg PO BID 08/05/18 [History] Buspirone HCl [Buspar] 15 mg PO BID 10/02/18 [History] FLUoxetine HCl [PROzac] 20 mg PO TID 10/02/18 [History] Nystatin POWDER [Nystop] 1 appl TP BID 10/02/18 [History] Phenylephrine HCl/[place] Butter [Preparation H Suppository] 1 each RC DAILY PRN 10/02/18 [History] diazePAM [Valium] 10 mg PO TID PRN 10/02/18 [History] Allergy/AdvReac Type Severity Reaction Status Date / Time cephalexin Allergy Rash Verified 10/02/18 10:09 meperidine [From Demerol] Allergy Difficulty Verified 10/02/18 10:09 Breathing morphine Allergy Hives Verified 10/02/18 10:09 Penicillins [PCN] Allergy Rash Verified 10/02/18 10:09 All Systems: The remainder of the systems were reviewed and are negative Physical Examination - Vital Signs Vital Signs: Initial Vital Signs Temp Pulse Resp BP Pulse Ox 98.7 F 86 18 144/81 97 10/02/18 09:47 10/02/18 09:47 10/02/18 09:47 10/02/18 09:47 10/02/18 09:47 - Constitutional General appearance: comfortable - Neurologic Detailed motor examination: full strength in all major muscle groups (left arm in brace post surgery of the left shoulder) Motor examination - right side: 5/5: hip flexors, tibialis Anterior, quadriceps, toe extension (EHL), plantarflexion Motor examination - left side: 5/5: deltoids, biceps, triceps, wrist flexion, wrist extension, hip flexors, cardiovascular rn, quadriceps, tibialis Anterior, toe extension (EHL), plantarflexion Detailed sensory examination: intact Posture: other (NOne) Reflexes: Biceps: 2+, Triceps: 2+, Brachioradialis: 2+, Patella: 2+, Achilles: 2+ Mental Status Examination: awake, alert, oriented to person, oriented to place, oriented to time, follows commands appropriately, answers questions appropriately, no agnosia, no aphasia, no aproxia Cranial nerve examination: PERRL, EOMI, visual rosales intact, corneal reflexes brisk symmetrically, sensory to face intact (pinprick present bilaterally, but patient feels different when touching her face), mastication intact, no facial asymmetry is present, no dysarthria, hearing is intact symmetrically, soft palate elevates bilaterally upon phonation, gag reflex intact, flexes SCM and t rapezius muscles symmetrically with full power, tongue protrudes midline, no atrophy or facial fasiculations present Cerebellar examination: no dysmetria, performs finger to nose and heel to moser symmetrically without ataxia, no gait ataxia, no truncal ataxia, no difficulty with rapid alternating movements Results - Laboratory Findings CBC and BMP: 10/05/18 11:20 10/05/18 11:55 Abnormal lab findings: Abnormal lab results RBC 3.76 M/mcL (3.82-4.97) L 10/05/18 11:20 Hgb 9.9 g/dL (11.5-15.4) L 10/05/18 11:20 Hct 30.7 % (35.3-44.9) L 10/05/18 11:20 MCV 81.6 fL (83.0-100.0) L 10/05/18 11:20 MCH 26.3 pg (28.0-33.3) L 10/05/18 11:20 Nucleated RBCs/100 WBC 0.4 /100 WBC (0) H 10/05/18 11:20 Glucose 119 mg/dL (70-105) H 10/05/18 11:55 - Diagnostic Findings Additional findings: CTA OF THE NECK 10/05/2018 1:21 pm TECHNIQUE: CTA of the neck was performed with the administration of intravenous contrast. Multiplanar reformatted images are provided for review. MIP images are provided for review. Stenosis of the internal carotid arteries measured using NASCET criteria. Dose modulation, iterative reconstruction, and/or weight based adjustment of the mA/kV was utilized to reduce the radiation dose to as low as reasonably achievable. COMPARISON: None. HISTORY: ORDERING SYSTEM PROVIDED HISTORY: POST STROKE ALERT 75 ml of ISOVUE 370 FINDINGS: AORTIC ARCH/ARCH VESSELS: There is a normal branch pattern of the aortic arch. No significant stenosis is seen of the innominate artery or subclavian arteries. CAROTID ARTERIES: The distal common carotid artery, carotid bifurcation, and proximal internal carotid arteries are partially obscured by streak artifact and beam hardening artifact. Remainder of the common carotid arteries are patent without stenosis. The cervical internal carotid arteries are grossly patent without significant stenosis. No gross dissection or arterial injury is seen. VERTEBRAL ARTERIES: The vertebral arteries both arise from the subclavian arteries and are without flow limiting stenosis or dissection. SOFT TISSUES: The lung apices are clear. No cervical or superior mediastinal lymphadenopathy. The visualized portion of the larynx and pharynx appear unremarkable. The parotid, submandibular and thyroid glands demonstrate no acute abnormality. BONES: The visualized osseous structures appear unremarkable. CT/CT angio neck IMPRESSION: 1. The distal common carotid arteries, carotid bifurcations, and proximal internal carotid arteries are partially obscured by streak artifact from left shoulder arthroplasty and beam hardening artifact per patient body habitus. 2. Within the above limitation, no gross hemodynamically significant stenosis or branch occlusion in the cervical arterial circulation. CT OF THE HEAD WITHOUT CONTRAST - STROKE ALERT 10/05/2018 11:45 am TECHNIQUE: CT of the head was performed without the administration of intravenous contrast. Dose modulation, iterative reconstruction, and/or weight based adjustment of the mA/kV was utilized to reduce the radiation dose to as low as reasonably achievable. COMPARISON: Head CT on 01/22/2018. HISTORY: ORDERING SYSTEM PROVIDED HISTORY: STROKE ALERT Right-sided weakness. Slurred speech. Acute. Initial evaluation. FINDINGS: BRAIN/VENTRICLES: The cerebral and cerebellar parenchyma demonstrate normal volume. Gallardo-white differentiation is maintained without evidence of acute infarct. There are no areas of acute hemorrhage, mass, or midline shift. No abnormal extra-axial fluid collections. The ventricles are normal in size. ORBITS: The orbits are unremarkable. SINUSES: The paranasal sinuses are well-aerated. The mastoid air cells are clear. Cerumen is noted in the right external auditory canal. SOFT TISSUES/SKULL: The calvarium is intact. No appreciable scalp soft tissue swelling. CT/CT stroke alert head wo con IMPRESSION: 1. No acute intracranial abnormality. Results discussed with Santosh Kitchen at 11:52 a.m. on 10/05/2018. D/ /05/2018 12:01:56 Arnold Anderson MD / shanta Interpreting Provider: Arnold Anderson MD Consult Discharge Plan - Plan Referrals: NONE,PCP [Primary Care Provider] -
[2018-10-05] MEDS ORDERED: Famotidine 20 MG TABLET PO PRN (21:00)
[2018-10-06] MEDS: tiZANidine 4 MG TABLET PO PRN (03:27)
[2018-10-06] MEDS: Acetaminophen 325 MG TABLET PO PRN (03:27)
[2018-10-06 05:37] LABS: Hematocrit 29.3 % (35.3-44.9); Hemoglobin 9.5 g/dL (11.5-15.4); Mean Corpuscular HGB Conc 32.4 g/dL (31.6-35.5); Mean Corpuscular Hemoglobin 26.3 pg (28.0-33.3); Mean Corpuscular Volume 81.2 fL (83.0-100.0); Mean Platelet Volume 9.1 fL (9.4-12.4); Platelet Count 301 K/mcL (140-400); Red Blood Count 3.61 M/mcL (3.82-4.97); Red Cell Distribution Width 12.4 % (11.5-14.5)
[2018-10-06 05:59] LABS: BUN/Creatinine Ratio 14 (6-26); Blood Urea Nitrogen 10 mg/dL (6-20); Calcium 8.8 mg/dL (8.6-10.3); Carbon Dioxide 30 mEq/L (23-29); Chloride 103 mEq/L (98-107); Glucose 125 mg/dL (70-105); Osmolality,Calculated 289 (280-300); Potassium 3.6 mEq/L (3.5-5.1); Sodium 139 mEq/L (136-145); eGFR For Non-African Americans > 60 (> 60)
[2018-10-06 06:00] LABS: Chol/HDL Ratio 3.1 (0-4.9)
[2018-10-06 06:13] LABS: Thyroid Stimulating Hormone 1.605 mcIU/mL (0.340-5.600)
[2018-10-06] MEDS: *HR* Enoxaparin 30 MG/0.3 ML SYRINGE SQ SCH (06:54)
[2018-10-06] MEDS: FLUoxetine 20 MG CAPSULE PO SCH (08:29)
[2018-10-06] MEDS: Aspirin 81 MG TAB.CHEW PO SCH (08:29)
[2018-10-06] MEDS: OXYCODONE Oral CONC 10 MG/0.5 ML ORAL.SYG SL PRN ×2 (08:29→16:27)
[2018-10-06] MEDS: hydroCHLOROthiazide 25 MG TABLET PO SCH (08:31)
[2018-10-06 08:54] LABS: Estimated Average Glucose 126 mg/dl
[2018-10-06] MEDS: Gabapentin 400 MG CAPSULE PO SCH (09:25)
--- NOTE | 2018-10-06 10:59 | Neurology Progress Note ---
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 She is neurologically stable. Will recommend no further testing. Please continue medical and supportive care. Will sign off at this time. Please call if any questions Subjective Principal diagnosis: mysfasical syndrome Interval history: Patient seen and examined this morning. She is doing the same. She mentioned last night after she takes her pain meds (oxycodone) she got little slurred. She states that she tends to get slurred when she takes pain med. This morning however, she did not slur. The left face still feel different, this time it also involve the right jaw and below the jaw at the right neck. Other than that, no other neurological discomforts reported. Objective - Constitutional Vitals: Temp Pulse Resp BP Pulse Ox 97.5 F L 91 16 120/78 95 10/06/18 10:51 10/06/18 10:51 10/06/18 10:51 10/06/18 10:51 10/06/18 10:51 - Neurological Exam Motor Examination: Present: full strength in all major muscle groups (left arm in brace post surgery of the left shoulder) Motor examination - right side: 5/5: deltoids, biceps, triceps, wrist flexion, wrist extension, radio engineer, hip flexors, tibialis Anterior, quadriceps, toe extension (EHL), plantarflexion Motor examination - left side: 5/5: deltoids, biceps, triceps, wrist flexion, wrist extension, hip flexors, radio engineer, quadriceps, tibialis Anterior, toe extension (EHL), plantarflexion Sensation intact: Present: intact Posture: Present: other (NOne) Mental Status Examination: Present: awake, alert, oriented to person, oriented to place, oriented to time, follows commands appropriately, answers questions appropriately, no agnosia, no aphasia, no aproxia Cranial nerve examination: Present: PERRL, EOMI, visual rosales intact, corneal reflexes brisk symmetrically, sensory to face intact (pinprick present bilaterally, but patient feels different when touching her face), mastication intact, no facial asymmetry is present, no dysarthria, hearing is intact symmetrically, soft palate elevates bilaterally upon phonation, gag reflex intact, flexes SCM and trapezius muscles symmetrically with full power, tongue protrudes midline, no atrophy or facial fasiculations present Cerebellar examination: Present: no dysmetria, performs finger to nose and heel to moser symmetrically without ataxia, no gait ataxia, no truncal ataxia, no d ifficulty with rapid alternating movements Results - Laboratory Findings CBC and BMP: 10/06/18 05:23 10/06/18 05:23 Abnormal lab findings: Abnormal lab results RBC 3.61 M/mcL (3.82-4.97) L 10/06/18 05:23 Hgb 9.5 g/dL (11.5-15.4) L 10/06/18 05:23 Hct 29.3 % (35.3-44.9) L 10/06/18 05:23 MCV 81.2 fL (83.0-100.0) L 10/06/18 05:23 MCH 26.3 pg (28.0-33.3) L 10/06/18 05:23 MPV 9.1 fL (9.4-12.4) L 10/06/18 05:23 Nucleated RBCs/100 WBC 0.4 /100 WBC (0) H 10/05/18 11:20 Carbon Dioxide 30 mEq/L (23-29) H 10/06/18 05:23 Glucose 125 mg/dL (70-105) H 10/06/18 05:23 POC Glucose 133 mg/dL (70-99) H 10/05/18 11:14 Hemoglobin A1c 6.0 % (-5.6) H 10/06/18 05:23 Consult Discharge Plan - Plan Referrals: NONE,PCP [Primary Care Provider] -
[2018-10-06] MEDS: diazePAM 10 MG TABLET PO PRN (11:26)
--- NOTE | 2018-10-06 13:36 | Physician Discharge Referral ---
Home Health/Hosp Referral Info Transfer to: Home Health Attending Provider: Provider in Charge Post Discharge: PCP - Diagnosis (1) Loosening of shoulder joint prosthesis Priority: Primary Status: Acute (2) Status post hardware removal Priority: Primary Status: Acute (3) Status post reverse total replacement of left shoulder Priority: Primary Status: Acute (4) HTN (hypertension) Priority: Secondary Status: Chronic (5) Hyperlipidemia Priority: Secondary Status: Chronic - Respiratory Orders None Smoking Cessation: Smoking cessation has been advised. For more information, call the [place] Tobacco Quit Line at 8-708-DTID-NOW. - Diet/Nutrition Diet/Nutrition Orders: Regular - Activity Activity Orders: Up ad leon, Ambulate - Services Needed Following services are medically necessary services: Nursing, Home Health Aide, Physical Therapy, Occupational Therapy Home Care Orders: Opsite dressing, leave intact until first post-operative visit. Zipline in place, plan to remove at post-operative day #14-16. If dressing becomes >50% saturated, contact office, remove dressing and place appropriate dressing in its place. Do not allow for dressing to get wet. Shoulder Precautions x 6 weeks. Apply cold therapy wrap 3-6x/day for 20 minutes at a time. Encourage ambulation throughout the day. Use Incentive spirometer 10x/hour. Elevate affected extremity above heart as tolerated. NWB to affected upper extremity x 6 weeks. Will remove brace at first post-operative appointment. OK to remove during PT/OT and Home exercises. Remove ABD pillow at Postoperative day #1 - Transfer Medications Prescriptions: Celecoxib [Celebrex] 200 mg PO BID PRN 30 Days #60 capsule PRN Reason: Pain Home Medications: Pantoprazole Sodium [Protonix] 40 mg PO DAILY 10/28/16 [History] hydrOXYzine pamoate [HydrOXYzine Pamoate] 50 mg PO Q8H PRN 06/22/17 [History] Aspirin 81 mg PO DAILY 12/04/17 [History] Quetiapine Fumarate [Seroquel] 300 mg PO HS 12/04/17 [History] Tizanidine HCl 6 mg PO TID PRN 12/04/17 [History] hydroCHLOROthiazide [Hydrochlorothiazide] 25 mg PO DAILY #30 tablet 12/08/17 [Rx] Atorvastatin [Lipitor] 10 mg PO HS 02/23/18 [History] Fluticasone Propionate Nasal [Flonase] 2 spr NS DAILY PRN 02/23/18 [History] SUMAtriptan succinate [Imitrex] 25 mg PO DAILY PRN 02/23/18 [History] raNITIdine HCl [Zantac] 150 mg PO BID PRN 02/23/18 [History] Buspirone HCl [Buspar] 15 mg PO BID 10/02/18 [History] FLUoxetine HCl [Prozac] 20 mg PO TID 10/02/18 [History] Nystatin POWDER [Nystop] 1 appl TP BID 10/02/18 [History] Phenylephrine HCl/[place] Butter [Preparation H Suppository] 1 each RC DAILY PRN 10/02/18 [History] diazePAM [Valium] 10 mg PO TID PRN 10/02/18 [History] Acetaminophen [Tylenol] 325 mg PO Q6HR PRN tablet 10/06/18 [Rx] Celecoxib [Celebrex] 200 mg PO BID PRN 30 Days #60 capsule 10/06/18 [Rx] Gabapentin [Neurontin] 300 mg PO TID capsule 10/06/18 [Rx] Lidocaine Patch [Lidoderm 5% patch] 1 each TP DAILY adh..patch 10/06/18 [Rx] OxyCODONE Immed Rel [Roxicodone 5 MG] 10 mg PO Q4HR PRN 5 Days #30 tablet 10/06/18 [Rx] Allergies/Adverse Reactions: Allergy/AdvReac Type Severity Reaction Status Date / Time cephalexin Allergy Rash Verified 10/02/18 10:09 meperidine [From Demerol] Allergy Difficulty Verified 10/02/18 10:09 Breathing morphine Allergy Hives Verified 10/02/18 10:09 Penicillins [PCN] Allergy Rash Verified 10/02/18 10:09 Certification: Further, I certify that my clinical findings support that this patient is homebound (i.e. absences from home require considerable and taxing effort and are for medical reasons or jehovah's witness services or infrequently or short duration when for other reasons) because: Homebound Reason: Post-surgery restriction and or conditions limit ability to leave home Attestation: My signature below is to certify that this patient is under my care and that I, or nurse practitioner, or a physician's assistant professor of anthropology working with me, has a [id number] encounter with this patient.
--- NOTE | 2018-10-06 13:40 | Orthopedics Progress Note ---
Date of Encounter: 10/06/18 Time of Encounter: 07:45 - Assessment and Plan (1) Status post reverse total replacement of left shoulder Current Visit: Yes Status: Acute POD#4 - Left TSR-r Revision - Shoulder motion as tolerated, in sling Patient doing better, no indication of stroke. 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 She is neurologically stable. Will recommend no further testing. Please continue medical and supportive care. Will sign off at this time. Please call if any questions Plan: Continue as planned - Patient has genetic mutation and metabolized certain medication faster than normal; and we have properly controlled her pain while in the hospital. Pain reported 5/10. She is stable from orthopedic standpoint. Plan for D/C home today with home health. We called around to multiple pharmacies to see if any had the sublingual Oxycodone, and unfortunatly they did not have it anywhere. I explained to patient and she asked for IV dilaudid to go home, and I explained that this would not be appropriate for discharge home. She was agreeable to D/C home with Oxycodone 10mg Q 4 hours PO with a 5 day supply. Her pain regiment is as follows: Oxycodone 10mg q 4 hours PO prn severe pain - RX Celebrex 200mg BID PO - RX Tizanidine 4mg TID prn pain - resuming home medication Tylenol 325mg PO every 6 hours - OTC Lidoderm patches - placed in hospital Gabapentin 300mg TID - resuming home medication Stable for D/C today. (2) Loosening of shoulder joint prosthesis Current Visit: Yes Status: Acute Qualifiers: Encounter type: initial encounter Qualified Code(s): T84.038A - Mechanical loosening of other internal prosthetic joint, initial encounter; Z96.619 - Presence of unspecified artificial shoulder joint (3) Status post hardware removal Current Visit: Yes Status: Acute (4) HTN (hypertension) Current Visit: No Status: Chronic Qualifiers: Hypertension type: essential hypertension Qualified Code(s): I10 - Essential (primary) hypertension (5) Hyperlipidemia Current Visit: No Status: Acute Qualifiers: Hyperlipidemia type: mixed hyperlipidemia Qualified Code(s): E78.2 - Mixed hyperlipidemia Subjective Principal diagnosis: s/p Left Revision TSR 10/02/18 Interval history: Patient A&Ox3 up walking in room. Patient appears comfortable, no acute distress. Pain 04/06, patient complaining of burning Afebrile, vitals stable. She was held on pain medication yesterday during stroke rule out. CTS were all negative. Facial numbness persists but improving. Pain controlled; noted to have slurring immediatley after oxycodone sL and flexeril last night. LUE: Dressing c/d/i. No erythema or ecchymosis noted No warmth No forearm tenderness Motion limited NV intact Objective Vital signs: Vital Signs Temp Pulse Resp BP Pulse Ox 10/06/18 10:51 97.5 F L 91 16 120/78 95 10/06/18 06:39 97.4 F L 71 18 104/56 100 10/05/18 23:00 98.4 F 88 16 124/88 92 10/05/18 19:39 98.2 F 73 17 120/70 92 10/05/18 14:08 98.3 F 81 18 116/55 98 Intake and Output 10/05/18 10/06/18 10/06/18 23:59 07:59 15:59 Intake Total 400 / 400 Balance 400 / 400 Intake: Oral 400 / 400 Other: Meal Dinner Percent of Meal Consumed 100% # Voids 1 1 Incision: clean and dry - Labs CBC & BMP: 10/06/18 05:23 10/06/18 05:23 Labs: Abnormal lab results RBC 3.61 M/mcL (3.82-4.97) L 10/06/18 05:23 Hgb 9.5 g/dL (11.5-15.4) L 10/06/18 05:23 Hct 29.3 % (35.3-44.9) L 10/06/18 05:23 MCV 81.2 fL (83.0-100.0) L 10/06/18 05:23 MCH 26.3 pg (28.0-33.3) L 10/06/18 05:23 MPV 9.1 fL (9.4-12.4) L 10/06/18 05:23 Nucleated RBCs/100 WBC 0.4 /100 WBC (0) H 10/05/18 11:20 Carbon Dioxide 30 mEq/L (23-29) H 10/06/18 05:23 Glucose 125 mg/dL (70-105) H 10/06/18 05:23 POC Glucose 133 mg/dL (70-99) H 10/05/18 11:14 Hemoglobin A1c 6.0 % (-5.6) H 10/06/18 05:23 Consult Discharge Plan - Plan Referrals: NONE,PCP [Primary Care Provider] -
[2018-10-06 15:54] VITALS: BP 154/89
[2018-10-06] MEDS: hydrOXYzine pamoate 25 MG CAPSULE PO PRN (17:00)
== END 2018-10-06 18:55 | disposition home health service (06) | DRG 483 ==
LOC: SAMDAY 09:22 → 3NENU 15:27
PROVIDERS: ADMIT Orthopaedic Surgery; ATTEND Orthopaedic Surgery